=== PATIENT | male | born 1955 | race Caucasian/White ===

== ENCOUNTER 2016-10-17 20:59 | Inpatient (IN) ==
[2016-10-17 21:53] LABS: MANUAL DIFF NEEDED? NO
[2016-10-17 22:07] LABS: BASO% 0.1 % (0.0-0.8); EOS# 0.05 X1000 (0.0-0.7); EOS% 0.3 % (0.0-10.0); HEMATOCRIT 38.4 % (42.0-52.0); HEMOGLOBIN 12.9 g/dL (14.0-18.0); IMM GRAN# 0.03 X1000 (0.0-0.04); IMM GRAN% 0.2 % (0.0-0.5); LYMPH# 1.36 X1000 (1.2-3.4); LYMPH% 9.5 % (20.5-51.1); MCH 27.8 PG (27-31); MCHC 33.6 g/dL (33-37); MCV 82.8 FL (81-99); MONO# 1.09 X1000 (0.11-0.59); MONO% 7.6 % (1.7-9.3); MPV 8.7 FL (7.4-10.4); NEUT% 82.3 % (42.2-75.2); PLT 307 X1000 (130-400); RBC 4.64 XMIL (4.7-6.1)
[2016-10-17 22:16] LABS: AGAP 14; ALKALINE PHOSPHATASE 103 U/L (32-122); BUN 30 mg/dL (8-22); CALCIUM 9.9 mg/dL (8.8-10.2); CHLORIDE 95 mmol/L (98-107); COSMO 277; GOT 39 U/L (10-34); GPT 88 U/L (10-44); POTASSIUM 4.3 mmol/L (3.5-5.1); SODIUM 134 mmol/L (136-145); TCO2 25 mmol/L (25-35); TOTAL PROTEIN 8.9 g/dL (6.3-8.3)
--- NOTE | 2016-10-17 23:16 | Diag Imaging Result Doc PS360 ---
EXAM: FOOT COMPLETE RIGHT HISTORY: INFECTION///WOUND TECHNIQUE: Three views COMPARISON: None. FINDINGS: There are prominent long-standing arthritic changes to the foot with bone spurring and joint space narrowing. There are erosions along the medial surface of the distal first metatarsal and proximal phalanx of the great toe. More chronic appearing erosions to the fourth metatarsal phalangeal joint. IMPRESSION: Findings suspicious for osteomyelitis at the first metatarsal phalangeal joint. Electronically signed by Ren Holguin 10/17/2016 11:13 PM
[2016-10-17] MEDS ORDERED: NS 1,000 ML IV ONE (23:31)
[2016-10-17] MEDS ORDERED: VANCOMYCIN 1 GM/NS 1 GM/250 ML IVPB IV ONE (23:33)
[2016-10-17] MEDS ORDERED: AMARYL PO ONE (23:35)
--- NOTE | 2016-10-17 23:38 | PROVIDER DOCUMENTATION ---
This chart was entered by Priya Mcclendon Scribe, acting as scribe for Ham Giraldo MD. HPI-Rash/Wound/ReCheck - General Chief Complaint: Extremity Pain Stated Complaint: "WOUND ON SOLE OF FOOT" Time Seen by Provider: 10/17/16 21:47 Source: patient Allergies/Adverse Reactions: Allergies Allergy/AdvReac Type Severity Reaction Status Date / Time No Known Allergies Allergy Verified 04/27/16 12:28 Home Medications: Home Medication List Medication Instructions Recorded Confirmed Last Taken Type Metformin [Glucophage] 500 mg PO DAILY 04/25/16 10/17/16 10/16/16 19:00 History 500 MG Allopurinol [Allopurinol] 1 tab PO DAILY 10/17/16 10/17/16 10/17/16 06:00 History 1 TAB Glimepiride [Glimepiride] 1 tab PO DAILY 10/17/16 10/17/16 10/16/16 19:00 History 1 TAB Lisinopril [Lisinopril] 5 mg PO DAILY 10/17/16 10/17/16 10/17/16 06:00 History 5 MG Sertraline [Zoloft] 50 mg PO DAILY 10/17/16 10/17/16 10/16/16 19:00 History 50 MG - History of Present Illness-Dermatology Nature of Presenting Problem: 61 year old M presents to the ED with a cc of a ulcer to bottom of right foot. Pt states that he is being followed by Dr. Banerjee for wound care. Pt states that was told to come to the ED with any changes. Pt states that today he noticed a purplish color to the top of right foot. Location: reports: feet Severity: reports: moderate Onset/Duration: reports: other ("months") Timing: reports: still present Context/Associated Symptoms: reports: other (ulcer) Locality of Occurance: Home Similar Symptoms Previously?: Yes Recently seen or treated by another doctor?: Yes Review of Systems - Adult - REVIEW OF SYSTEMS - ADULT Constitutional: denies: chills, fever Eyes: reports: no symptoms reported Ears, Nose, Mouth & Throat: reports: no symptoms reported Cardiovascular: reports: no symptoms reported Respiratory: reports: no symptoms reported Gastrointestinal: reports: no symptoms reported Genitourinary: reports: no symptoms reported Musculoskeletal: denies: muscle aches, muscle weakness Integumentary: reports: skin sores/ulcer. denies: skin thickening Neurological: reports: no symptoms reported Psychiatric: reports: no symptoms reported Endocrine: reports: no symptoms reported Hematologic/Lymphatic: reports: no symptoms reported Allergic/Immunologic: reports: no symptoms reported All Other Systems: Reviewed and Negative Past History - Adult - PAST MEDICAL HISTORY-ADULT Review of Records: reports: Nursing Assessment Review, Medications Reviewed Major Childhood Illnesses: reports: denies history Endocrine/Immune: reports: Diabetes - PRIOR SURGERIES/PROCEDURES Surgical/Procedure History: reports: orthopedic (extremity) - IMMUNIZATION STATUS Childhood Immunizations: See Nurse Assessment Flu Vaccine: See Nurse Assessment - SOCIAL HISTORY Smoking: non-smoker Substance Use: none/never Alcohol Use Frequency: never Physical Exam-General - PHYSICAL EXAM-ADULT Initial Vital Signs Reviewed: Yes - CONSTITUTIONAL General Appearance: appears well, alert, no apparent distress - RESPIRATORY Respiratory: no respiratory distress - CARDIOVASCULAR Cardiovascular: regular rate, rhythm - SKIN Integumentary: other (1.5 cm diabetic ulcer to bottom of right foot at base of 4th metatarsal) - PSYCHIATRIC Psych/Mental Status: normal mood/affect, normal thought content, normal thought process, oriented x 3 Progress - PLAN OF CARE/RESULTS Progress/Plan/Lab Results: Vital Signs - 8 hr 10/17/16 21:17 Temperature 98.4 F Pulse Rate 107 H Respiratory Rate 16 Blood Pressure 131/83 O2 Sat by Pulse Oximetry 98 Laboratory Results - last 24 hr 10/17/16 10/17/16 21:30 21:30 WBC 14.36 H RBC 4.64 L Hgb 12.9 L Hct 38.4 L MCV 82.8 MCH 27.8 MCHC 33.6 RDW Std Deviation 13.1 Plt Count 307 MPV 8.7 Immature Gran % (Auto) 0.2 Neut % (Auto) 82.3 H Lymph % (Auto) 9.5 L Carver % (Auto) 7.6 Eos % (Auto) 0.3 Baso % (Auto) 0.1 Immature Gran # (Auto) 0.03 Neut # (Auto) 11.82 H Lymph # (Auto) 1.36 Carver # (Auto) 1.09 H Eos # (Auto) 0.05 Baso # (Auto) 0.01 Sodium 134 L Potassium 4.3 Chloride 95 L Carbon Dioxide 25 Anion Gap 14 BUN 30 H Creatinine 1.1 Estimated GFR/1.73 m2 > 60 BUN/Creatinine Ratio 27 Glucose 148 H Calculated Osmolality 277 Calcium 9.9 Total Bilirubin 0.80 AST 39 H ALT 88 H Alkaline Phosphatase 103 Total Protein 8.9 H Albumin 4.0 Globulin 5.0 Albumin/Globulin Ratio 1.0 Orders Category Date Time Status Admit - [facility] Routine AdmDCTranf 10/17/16 23:31 Ordered Activity - Bed Rest with BRP ORDERED Care 10/17/16 23:31 Active IV Insertion ORDERED Care 10/17/16 21:46 Completed Vital Signs Order Q 8-HR .ASSESS Care 10/17/16 23:31 Active Diabetic Diet Diet 10/17/16 23:32 Active FOOT COMPLETE RIGHT [RAD] Stat Exams 10/17/16 21:47 Completed CBC WITH ELECTRONIC DIFF [HEME] Stat Lab 10/17/16 21:30 Completed COMPREHENSIVE METABOLIC PANEL [CHEM] Stat Lab 10/17/16 21:30 Completed WOUND CULTURE INC GRAM STAIN [RM] Routine Lab 10/17/16 21:52 Received 0.9% Sodium Chloride Inj [Ns] 1,000 ml Med 10/17/16 23:31 Discontinued IV KVO Glimepiride [Amaryl] Med 10/17/16 23:35 Once 4 mg PO NOW ONE Piperacil/Tazobact 3.375 gm/Ns [Zosyn 3.375 gm/Ns] 50 Med 10/17/16 23:45 Ordered ml IV Q6H Vancomycin 1 gm/Ns Med 10/17/16 23:33 Active 1 gm in 250 ml IV NOW Result Diagrams: 10/17/16 21:30 10/17/16 21:30 Departure - Departure Date of Disposition Decision: 10/17/16 Time of Disposition Decision: 23:37 DIAGNOSIS: Diabetic foot ulcer with osteomyelitis Disposition: ADMITTED INPATIENT 09 Certified Medical Emergency: Emergent Condition: Stable Referrals and Follow-Ups: Marylu Aviles MD [Primary Care Provider] - - Critical Care Note This patient required my direct & personal management of CC.: No This chart was documented by the indicated scribe, (Priya Mcclendon Scribe) and accurately reflects the services I performed and decisions made by me, Ham Giraldo MD, as attested by the provider's signature.
[2016-10-18] MEDS: ZOSYN 3.375 GM/NS 3.375 GM/50 ML IVPB IV SCH ×4 (01:04→17:04)
[2016-10-18] MEDS ORDERED: AMARYL PO SCH (09:15)
[2016-10-18] MEDS ORDERED: GLUCOPHAGE PO SCH (09:15)
[2016-10-18] MEDS ORDERED: VANCOMYCIN IV PER PHARMACY MISC SCH (09:15)
[2016-10-18] MEDS ORDERED: ZYLOPRIM PO SCH (09:15)
[2016-10-18] MEDS ORDERED: ZOLOFT PO SCH (09:15)
[2016-10-18] MEDS ORDERED: PRINIVIL PO SCH (09:15)
[2016-10-18] MEDS ORDERED: VANCOMYCIN 1,400 MG in NS 250 ML IV ONE (11:00)
--- NOTE | 2016-10-18 11:30 | HISTORY AND PHYSICAL ---
PRIMARY CARE PHYSICIAN: Dr. Aviles. SURGEON: Dr. Banerjee. CHIEF COMPLAINT: Ulcer on the bottom of his right foot that has turned purplish color to the top of the right foot now. HISTORY OF PRESENTING ILLNESS: This is a 61-year-old, male who presents to [facility] ER, stating that he is followed by Dr. Banerjee and being treated for a diabetic foot ulcer on the bottom part of his right foot. He was told that if any discoloration, pain, or drainage occurred to the right foot, to come to the emergency room. He noted some purple discoloration to the 4th toe of his right foot so he came to the emergency room. He was noted upon arrival to have a white blood cell count of 14.36. A right foot x-ray showed findings suspicious for osteomyelitis at the 1st metatarsophalangeal joint so he is being admitted for further evaluation and treatment. PAST MEDICAL HISTORY: Diabetes, coronary artery disease, hypertension, gout, and chronic kidney disease. PAST SURGICAL HISTORY: Right rotator cuff surgery and left toe amputation secondary to a diabetic ulcer with osteomyelitis back in April of this year. FAMILY HISTORY: Noncontributory. SOCIAL HISTORY: Currently lives with family. Denies any tobacco, alcohol, or illicit drug use. ALLERGIES: He has no known drug allergies. HOME MEDICATIONS: He takes allopurinol 100 mg p.o. daily, glimepiride 4 mg p.o. daily, lisinopril 5 mg p.o. daily, Glucophage 500 mg p.o. daily, and Zoloft 50 mg p.o. daily. LABORATORY DATA: Showed a white blood cell count of 14.36, a hemoglobin of 12.9, hematocrit 38.4, platelets 307,000. Sodium 134, potassium 4.3, chloride 95, CO2 25, BUN of 30, creatinine 1.1, glucose 148. AST of 39, ALT 88. X-ray of the right foot showed findings suspicious for osteomyelitis at the 1st metatarsophalangeal joint of the great toe and more chronic appearing erosions to the 4th metatarsophalangeal joint. REVIEW OF SYSTEMS: He denied any fever, chills, blurred vision, dizziness, chest pain, coughing, shortness of breath. Denied any constipation, diarrhea, burning or hurting with urination. He was positive for some purplish discoloration to his 4th right toe. PHYSICAL EXAMINATION: VITAL SIGNS: Temperature 98.4 degrees, pulse 107, respirations 16, blood pressure 131/83, saturating 98% on room air. GENERAL: This is a 61-year-old, male who is lying in the bed and answers questions appropriately. HEENT: Normocephalic and atraumatic. Pupils are equal, round, and reactive to light. The extraocular movements are intact. Oropharynx and nares are clear. NECK: Supple. LUNGS: Clear to auscultation bilaterally with equal lung expansion and chest wall movement. HEART: With regular rate and rhythm. No murmurs, rubs, or gallops. ABDOMEN: Soft, nontender, nondistended. Bowel sounds are present x4 quadrants. EXTREMITIES: No clubbing, cyanosis, or edema. Patient is noted to have a 1.5 cm diabetic ulcer to the bottom of his right foot at the base of the 4th metatarsal with a pinpoint open area and red-purplish discoloration that extends up into the 4th toe on the top. NEUROLOGICAL: The cranial nerves 2-12 are grossly intact. ASSESSMENT: 1. Right diabetic foot ulcer. 2. Osteomyelitis of the right foot, specifically in the 1st metatarsophalangeal joint. 3. Diabetes type 2. 4. Hypertension. PLAN: He was admitted to the medical unit at [place]. Placed on a diabetic diet. We will consult surgery, Dr. Banerjee. Surgeon has been following him in the wound clinic. We will consult the wound care nurse also. Place on vancomycin per pharmacy protocol, Zosyn 3.375 g IV q.6. Continue his home medications. Pattern blood sugars with sliding scale insulin. Recheck a CBC, BMP in the a.m. Dictated by ZACHARIAH Justin for Kristian Gilmore MD cc: ZACHARIAH Justin MD Bhavna Gowda, MD
--- NOTE | 2016-10-18 13:35 | PROGRESS NOTE ---
DATE: 10/18/2016 SUBJECTIVE: Today Mr. Gamino refers to be doing fine. He has been seeing Dr. Banerjee for treatment of a wound under his right leg. However, he was told that if the 4th toe shows any signs of blue, he should go to the emergency room, and that is what he has done. OBJECTIVE: Vital Signs: Blood pressure is 121/60, pulse is 83, respirations 18, temperature 98 degrees. General: Mr. Gamino is a 61-year-old male. He is in bed. He does not seem to be in any distress. HEENT: Mucosa is pink and moist. Anicteric. Acyanotic. Neck: Supple. Chest: Good air entry bilaterally. No crepitations. No rhonchi. Cardiovascular: Regular rate and rhythm. Abdomen: Soft. Extremities: There is no pedal edema, but there is sparsity of hair distribution in the lower extremity. Distal pulses are present bilaterally, but kind of low in intensity. The left foot has the 2nd and the 4th toes amputated. The right leg has some discoloration above the 3rd and the 4th toes. The 4th looks bluish, and there is some purplish discoloration in the medial aspect of the 4th toe, which is with some foul smell discharge. LABORATORY DATA: None for today. An x-ray of the right foot shows findings suspicious for osteomyelitis at the 1st metatarsophalangeal joint. ASSESSMENT: 1. Right diabetic foot ulcer. 2. Osteomyelitis of the right big toe. 3. The 4th toe on the right side with bluish discoloration suspicious for gangrene toe. 4. Diabetes mellitus. 5. Hypertension. PLAN: We are going to continue with the current IV antibiotics, including vancomycin and Zosyn, until the patient gets to see the surgeon. We will use sliding scale for blood glucose control. We are going to withhold the oral hypoglycemic agents while the patient is in the hospital since there is a risk that we might do other investigations that might need contrast. In that case, we will not be able to use metformin, so we are just going hold back on those. cc: Kristian Gilmore MD
--- NOTE | 2016-10-18 14:04 | CONSULTATION ---
DATE OF CONSULTATION: 10/18/2016 REQUESTING PHYSICIAN: Dr. Gilmore. Consult concerning diabetic foot ulcer. HISTORY OF PRESENT ILLNESS: A 61-year-old male who is a patient of my partner, Dr. Banerjee. He has been treated for diabetic foot ulcer on the bottom of his right foot. He had been seen by Dr. Banerjee in the Wound Care Clinic last week. Apparently the wound has been healing up somewhat but he came to the emergency department yesterday with discoloration, pain and drainage coming from the right foot. He also noted that the toe itself became purple. Foot x-ray done in the emergency department did show suspicion for osteomyelitis of the 1st metatarsal phalangeal joint. He was admitted and started on antibiotics. I was asked to evaluate the patient. He does have a white blood cell count of 14.3. The patient reports no significant pain. Says it is worse since he saw Dr. Banerjee last week. PAST MEDICAL HISTORY: Diabetes, coronary artery disease, hypertension, gout, chronic kidney disease. PAST SURGICAL HISTORY: Includes previous amputation on his left foot, rotator cuff surgery on the right. FAMILY HISTORY: Reviewed with patient, noncontributory. SOCIAL HISTORY: Denies alcohol, tobacco or illicit drugs. ALLERGIES: None. HOME MEDICATIONS: Reviewed. Current MAR reviewed. Of note, he is on vancomycin and Zosyn. REVIEW OF SYSTEMS: A full 10 point review of systems obtained, negative as specified in HPI. PHYSICAL EXAMINATION: Vital Signs: Patient is currently afebrile. Temperature 98.8 degrees. He did have a temperature max of 100.6 degrees. His pulse is 86, respiratory rate 18, blood pressure 121/60. General: No acute distress. Alert, interactive, male looks stated age. HEENT: Normocephalic, atraumatic. Pupils equal, round, reactive to light. Mucous membranes moist. Oropharynx benign. Neck: Supple. Trachea midline. Cardiovascular: Regular rate and rhythm. Lungs: Grossly clear. Abdomen: Soft, nontender, nondistended. Extremities: Previous amputation noted to the left foot that is healing well. On the right foot he does have a diabetic foot ulcer on the plantar aspect at the base of the 4th metatarsal. There is a discoloration on his 4th toe. There is some erythema on dorsal aspect. Neurologic: Grossly intact. Skin: As noted above. Vascular: All extremities perfused. LABORATORY: White blood cell count yesterday was 14, hematocrit 38. X-ray reviewed and radiology report reviewed. There is some chronic appearing changes to the 4th metatarsophalangeal joint. It is possible osteomyelitis of the 1st metatarsal joint. ASSESSMENT AND PLAN: A 61-year-old male with a diabetic foot ulcer. 1. Diabetic foot ulcer. At this time agree with antibiotics. We will ask Dr. Banerjee to see him tomorrow. He has been followed in the Wound Care pretty closely. This may ultimately require an amputation. I suspect he has got some degree of peripheral vascular disease in that foot and has maybe caused embolic disease to his 4th toe. Regardless the toe itself has discoloration and suspect it will again need amputation but we will allow Dr. Banerjee a chance to see since he has seen him and see his progress in the last several months. 2. Multiple medical comorbidities currently being managed by hospitalist service. I appreciate the consult. cc: Frank Noguera MD
[2016-10-18] MEDS ORDERED: D50W SYRINGE ONE (16:27)
[2016-10-18] MEDS: HUMALOG (PARKWAY) SUBQ SCH ×2 (16:29→20:39)
[2016-10-18] MEDS: PRINIVIL PO SCH (20:23)
[2016-10-18] MEDS: ZYLOPRIM PO SCH (20:24)
[2016-10-18] MEDS: ZOLOFT PO SCH (20:24)
[2016-10-18] MEDS: VANCOMYCIN 1 GM/NS 1 GM/250 ML IVPB IV SCH (22:05)
[2016-10-19] MEDS: ZOSYN 3.375 GM/NS 3.375 GM/50 ML IVPB IV SCH ×4 (02:12→22:29)
[2016-10-19 06:05] LABS: MANUAL DIFF NEEDED? NO
[2016-10-19] MEDS ORDERED: D50W SYRINGE ONE (06:30)
[2016-10-19] MEDS: HUMALOG (PARKWAY) SUBQ SCH (06:33)
[2016-10-19 06:35] LABS: BASO% 0.1 % (0.0-0.8); EOS# 0.05 X1000 (0.0-0.7); EOS% 0.4 % (0.0-10.0); HEMATOCRIT 32.6 % (42.0-52.0); HEMOGLOBIN 10.8 g/dL (14.0-18.0); IMM GRAN# 0.04 X1000 (0.0-0.04); IMM GRAN% 0.3 % (0.0-0.5); LYMPH% 7.1 % (20.5-51.1); MCH 27.4 PG (27-31); MCHC 33.1 g/dL (33-37); MCV 82.7 FL (81-99); MONO# 1.28 X1000 (0.11-0.59); MPV 8.6 FL (7.4-10.4); NEUT% 83.1 % (42.2-75.2); PLT 250 X1000 (130-400); RBC 3.94 XMIL (4.7-6.1)
[2016-10-19 06:49] LABS: AGAP 9; BUN 29 mg/dL (8-22); CALCIUM 9.1 mg/dL (8.8-10.2); CHLORIDE 103 mmol/L (98-107); COSMO 277; POTASSIUM 4.5 mmol/L (3.5-5.1); SODIUM 137 mmol/L (136-145); TCO2 25 mmol/L (25-35)
[2016-10-19] MEDS: VANCOMYCIN 1 GM/NS 1 GM/250 ML IVPB IV SCH (11:05)
[2016-10-19] MEDS: HUMALOG DOSE (PARKWAY) SUBQ SCH ×3 (11:05→22:29)
--- NOTE | 2016-10-19 13:42 | PROGRESS NOTE ---
DATE: 10/19/2016 SUBJECTIVE: Today, Mr. Gamino refers to be doing fine. Does not actually have any complaints. He is awaiting Dr. Banerjee to review him. OBJECTIVE: Vital signs: Blood pressure is 146/68, pulse is 70, respirations 18, temperature 97.4 degrees. General: Mr. Gamino is a 61-year-old male. He is in bed, not seemingly distressed. HEENT: Mucosa is pink and moist. Anicteric. Acyanotic. Neck: Supple. Chest: Clear. Cardiovascular: Regular rate and rhythm. Abdomen: Soft. Extremities: No pedal edema. There is a sparsity of hair distribution on the lower extremities. Distal pulses are bilaterally reduced. The left foot has the 2nd and the 4th toe amputated. The right leg has some erythematous changes above the 3rd and the 4th toes. The 4th toe continues to look more bluish in discoloration and smells funny. LABORATORY DATA: WBC is 14.16, hemoglobin is 10.8, platelet count of 250,000. Chemistry was reviewed and completely normal. Glucose was 43, a little low. ASSESSMENT: 1. Right diabetic foot ulcer. 2. Osteomyelitis of the right big toe on imaging; however, clinically does not have any problem. 3. Fourth right toe with bluish discoloration suspicious for gangrene toe (embolic phenomenon). 4. Diabetes mellitus. The patient actually went hypoglycemic yesterday, so we had to discontinue all her oral antidiabetic medications. 5. Hypertension. Controlled. So, today we will going to continue with the current IV antibiotics, including vancomycin and Zosyn. We are pending Surgery to evaluate the patient on the toe. I think he eventually will be needing amputation of the affected toe. cc: Kristian Gilmore MD
[2016-10-19] MEDS: PRINIVIL PO SCH (22:29)
[2016-10-19] MEDS: ZOLOFT PO SCH (22:29)
[2016-10-19] MEDS: ZYLOPRIM PO SCH (22:29)
[2016-10-20] MEDS: VANCOMYCIN 1 GM/NS 1 GM/250 ML IVPB IV SCH (00:56)
[2016-10-20] MEDS: ZOSYN 3.375 GM/NS 3.375 GM/50 ML IVPB IV SCH ×3 (05:43→16:59)
[2016-10-20 06:30] LABS: MANUAL DIFF NEEDED? NO
[2016-10-20 06:38] LABS: BASO% 0.1 % (0.0-0.8); EOS# 0.35 X1000 (0.0-0.7); EOS% 3.2 % (0.0-10.0); HEMATOCRIT 31.5 % (42.0-52.0); HEMOGLOBIN 10.2 g/dL (14.0-18.0); IMM GRAN# 0.01 X1000 (0.0-0.04); IMM GRAN% 0.1 % (0.0-0.5); LYMPH# 0.96 X1000 (1.2-3.4); LYMPH% 8.7 % (20.5-51.1); MCH 26.8 PG (27-31); MCHC 32.4 g/dL (33-37); MCV 82.7 FL (81-99); MONO% 9.1 % (1.7-9.3); MPV 8.6 FL (7.4-10.4); NEUT% 78.8 % (42.2-75.2); PLT 225 X1000 (130-400); RBC 3.81 XMIL (4.7-6.1)
[2016-10-20] MEDS: HUMALOG DOSE (PARKWAY) SUBQ SCH ×2 (06:44→14:03)
[2016-10-20 06:59] LABS: AGAP 10; BUN 24 mg/dL (8-22); CALCIUM 9.1 mg/dL (8.8-10.2); CHLORIDE 104 mmol/L (98-107); COSMO 277; SODIUM 136 mmol/L (136-145); TCO2 22 mmol/L (25-35)
--- NOTE | 2016-10-20 08:41 | EKG Report ---
Test Performed on : 10/20/2016 07:18:09 AM Test Reason : per anesthesia request Blood Pressure : / mmHG Vent. Rate : 079 BPM Atrial Rate : 079 BPM P-R Int : 136 ms QRS Dur : 088 ms QT Int : 376 ms P-R-T Axes : 036 031 020 degrees QTc Int : 431 ms Normal sinus rhythm. Normal ECG When compared with ECG of 12-JUL-2010 12:56, Nonspecific T wave abnormality no longer evident in Lateral leads Unconfirmed Result
--- NOTE | 2016-10-20 09:25 | PROGRESS NOTE ---
DATE: 10/19/2016 SUBJECTIVE: He feels well. Some pain in his toe but he overall feels okay. OBJECTIVE: Vital Signs: Over his hospital course on the , he had a low-grade temperature of a 100.6 degrees but he has been afebrile since. No acute tachycardia. Blood pressures have been in the 140s systolic. He is on room air saturating 100%. General: He is alert, in no acute distress. Extremities: His bilateral feet are warm. He has got a well-healed amputation site on his left foot with some toe deformities here. No wounds on the right. Plantar aspect overlying the 4th metatarsal head over the 4th and 5th, there is a chronic appearing wound at the base of the callus. It is overall stable. He had some erythema on top of his foot and the 4th toe is purple and ischemic. There is no purulence here. He has got palpable pedal pulses. Labs: Yesterday, white count 14, hematocrit 32, platelets are 250,000. Creatinine is 1. Glucose has been fluctuating, mostly in the 100s. Occasionally dips low to the 40s and 50s. He had a foot x-ray that showed some findings suspicious at the 1st metatarsophalangeal joint but nothing at the site of the wounds or the toe in question. ASSESSMENT/PLAN: Long discussion with this patient who is well known to me. Follow him at the wound center. I suspect that the chronic wound on the bottom of foot has caused distal ischemia of the 4th toe. I recommended amputation, debridement of his foot to facilitate wound healing and to help with his discomfort here. His wounds on the left healed very quickly, surprisingly. He is quite compliant. Patient has got a good support system. Long discussion with the patient. I have recommended amputation of 4th toe with debridement of his foot. We will plan to do this tomorrow. In the meantime, he is on antibiotics. We will make him NPO at midnight and take him to the operating room tomorrow for this. He understands the anticipated prolonged wound healing as he has dealt with this on his left foot over the last couple of months but this will be the first step in getting him over this insult. cc: Bhavik Banerjee MD
--- NOTE | 2016-10-20 12:42 | OPERATIVE NOTE ---
PROCEDURE DATE: 10/20/2016 PREOPERATIVE DIAGNOSIS: Diabetic foot infection of the right with ischemia of the 4th toe. POSTOPERATIVE DIAGNOSIS: Diabetic foot infection of the right with ischemia of the 4th toe. PROCEDURE PERFORMED: Right 4th toe transmetatarsal amputation. ANESTHESIA: General. INDICATION: This is a 61-year-old male with poor diabetic control. He has had a previous history of amputation of the left foot by myself that has healed. He presented back with a worsening wound on the plantar aspect of his foot and a purple painful toe consistent with a diabetic foot infection. He had been treated with antibiotics with no improvement. Amputation is indicated. OPERATIVE FINDINGS: There was a densely necrotic right 4th toe with purulence extending down the metatarsal head and dorsally on the foot of the surrounding tissue. This approximated the periosteum of the third metatarsal medially but did not involve this. Surrounding tissue was bleeding well, otherwise, healthy. PROCEDURE IN DETAIL: Operative risks, benefits, and alternatives discussed with the patient, and he consented to the procedure. Seen preoperatively, surgery to be performed was confirmed. He was taken to the operating room and placed on supine position. General anesthesia was induced without complication. All bony prominences were padded. The right foot was prepped with Betadine solution and draped in the usual fashion. A time-out was performed. We confirmed the surgical site that was marked. We identified the toe in question and then made an elliptical incision around this. At the area of demarcated skin, there is a plantar wound here overlying the metatarsal head. We included this in the excision. Took this down to the metatarsal joint and excised this. The distal metatarsal head was obviously involved. As such, using bone cutters, we excised this at the distal metatarsal shaft. We irrigated the wound. Debrided the bone back with rongeur forceps and noted healthy bleeding tissue surrounding. There was some undermining dorsally but there was no necrotic tissue here, and this was felt best left open to drain. Then applied moist gauze dressing, Kerlix wrap, and a loose SHANI. He tolerated the procedure well with no identified complications. Counts correct x2. I spoke with the family. cc: Bhavik Banerjee MD MTDFab
[2016-10-20] MEDS ORDERED: NORCO-7.5 PO PRN (14:29)
[2016-10-20] MEDS ORDERED: ZOFRAN IV PRN (15:55)
[2016-10-20] MEDS ORDERED: TYLENOL PO PRN (15:55)
[2016-10-20] MEDS: HUMALOG SUBQ SCH ×2 (16:31→21:51)
[2016-10-20] MEDS: PERIDEX MT SCH (21:50)
[2016-10-20] MEDS: ZYLOPRIM PO SCH (21:50)
[2016-10-20] MEDS: ZOLOFT PO SCH (21:50)
[2016-10-20] MEDS: PRINIVIL PO SCH (21:50)
[2016-10-21] MEDS: ZOSYN 3.375 GM/NS 3.375 GM/50 ML IVPB IV SCH ×5 (00:14→23:08)
[2016-10-21 05:50] LABS: HEMATOCRIT 30.6 % (42.0-52.0); HEMOGLOBIN 9.9 g/dL (14.0-18.0); MCH 28.1 PG (27-31); MCHC 32.4 g/dL (33-37); MCV 86.9 FL (81-99); MPV 8.6 FL (7.4-10.4); RBC 3.52 XMIL (4.7-6.1)
[2016-10-21 05:58] LABS: HEMOGLOBIN A1C 6.5 % (4.8-6.0)
[2016-10-21 06:14] LABS: AGAP 11; BUN 19 mg/dL (8-22); CHLORIDE 100 mmol/L (98-107); COSMO 281; POTASSIUM 4.3 mmol/L (3.5-5.1); SODIUM 138 mmol/L (136-145); TCO2 27 mmol/L (25-35)
[2016-10-21] MEDS: HUMALOG SUBQ SCH ×4 (06:21→20:01)
[2016-10-21] MEDS: LOVENOX SUBQ SCH (06:32)
[2016-10-21] MEDS: PERIDEX MT SCH ×2 (08:37→20:04)
--- NOTE | 2016-10-21 14:46 | PROGRESS NOTE ---
DATE: 10/21/2016 SUBJECTIVE: Patient has no focal complaints. OBJECTIVE: Blood pressure 114/66, heart rate of 82, respiratory rate 16, temperature 98.7 degrees, 99% on room air.Cardiovascular: Regular rate and rhythm. Pulmonary: Bilateral breath sounds. Clear to auscultation. GI: Soft, nontender, nondistended. Bowel sounds are positive. LABORATORIES: White count 9.9, hemoglobin and hematocrit 9.9 and 30.6. CMP looked okay. His glucoses were 200 to 264, A1c is 6.5. PROBLEM LIST: 1. Osteo of the 4th toe status post amputation postop day 1. He seems to be recuperating well. He is currently on antibiotics. Plan is to continue IV antibiotics and then discharged home on likely oral antibiotics. 2. Diabetic foot ulcer. Will continue wound care as described. 3. Diabetes. He is actually pretty well controlled on his current regimen. His A1c is 6.5, previously 5.5 so I think he is doing well. 4. Disposition. Pending clinical course. Hopefully home in the next 1-2 days per surgical recommendations. cc: Robert Ang MD
--- NOTE | 2016-10-21 15:46 | PROGRESS NOTE ---
DATE: 10/21/2016 SUBJECTIVE: He feels well. No pain in his foot. No events overnight. OBJECTIVE: No fevers. No tachycardia. Blood pressure 114/66, oxygen saturation 99% on room air. General: He is alert. His dressing is clean, dry, and intact. His remaining toes are viable. White count is 9, hematocrit 30, creatinine is 1.2, glucose 153. ASSESSMENT AND PLAN: A 61-year-old male with diabetic foot infection status post right 4th toe amputation in transmetatarsal fashion. He is doing well. He is on IV antibiotics. His dressing is clean and we can remove this tomorrow. Dr. Odom is going to see my patients but I think he will be ready to discharge home soon. He can see me back in the next 1-2 weeks at [facility] to follow his wound. In the meantime, we will continue Santyl, lavage dressings , and they are familiar with this wound as they have dealt with a similar on the left foot. His daughter is here. He has a good support system. He has got an off-loading boot. I have encouraged him to wear this at all times. and to wear this at all times. cc: Bhavik Banerjee MD [employer]
[2016-10-21] MEDS: ZOLOFT PO SCH (20:04)
[2016-10-21] MEDS: ZYLOPRIM PO SCH (20:05)
[2016-10-21] MEDS: PRINIVIL PO SCH (20:05)
[2016-10-22] MEDS: ZOSYN 3.375 GM/NS 3.375 GM/50 ML IVPB IV SCH (05:00)
[2016-10-22] MEDS: LOVENOX SUBQ SCH (05:00)
[2016-10-22 05:27] LABS: HEMATOCRIT 31.2 % (42.0-52.0); HEMOGLOBIN 10.1 g/dL (14.0-18.0); MCH 27.9 PG (27-31); MCHC 32.4 g/dL (33-37); MCV 86.2 FL (81-99); MPV 8.6 FL (7.4-10.4); RBC 3.62 XMIL (4.7-6.1)
[2016-10-22 05:59] LABS: AGAP 10; BUN 18 mg/dL (8-22); CALCIUM 9.2 mg/dL (8.8-10.2); CHLORIDE 99 mmol/L (98-107); COSMO 276; POTASSIUM 4.6 mmol/L (3.5-5.1); SODIUM 136 mmol/L (136-145); TCO2 27 mmol/L (25-35)
[2016-10-22] MEDS: HUMALOG SUBQ SCH ×2 (06:12→10:27)
[2016-10-22 09:16] VITALS: BP 115/65
[2016-10-22] MEDS: PERIDEX MT SCH (10:27)
--- NOTE | 2016-10-22 16:04 | DISCHARGE SUMMARY ---
ADMISSION DATE: 10/17/2016 DISCHARGE DATE: 10/22/2016 ADMITTING DIAGNOSES: 1. Infected right 4th toe. 2. Poorly-controlled diabetes. DISCHARGE DIAGNOSES: 1. Infected right 4th toe. 2. Poorly-controlled diabetes. PRINCIPAL PROCEDURE: Right 4th toe amputation per Dr. Banerjee 10/20/2016. DISCHARGE DISABILITY: Full. DISCHARGE DISPOSITION: He will return to the wound clinic and be followed by Dr. Banerjee. DISCHARGE MEDICATION: He is to return to his home medications. DISCHARGE DIET: Diabetic diet. HOSPITAL COURSE: Mr. Melvin Gamino presented to the emergency department on 10/17/2016. Was admitted by the hospitalist. Was seen by Dr. Noguera in consultation 10/18/2016. Dr. Banerjee had followed him as an outpatient and therefore did his surgery on 10/20/2016 which was amputation of the right 4th toe. The wound was left open. I evaluated it today, it was clean, and I taught his how to dress the wound. I talked about wound care. He has follow-up appointment in the wound clinic and we will discharge him home today. They know to contact us with any problems. He was given some dressings and saline at discharge so that they can do twice daily dressings. cc: Andree Odom MD
== END 2016-10-22 11:00 | disposition home or self-care (01) ==
LOC: P.ED 20:59 → P.MEDSURG 21:00 → SUATTDRO 21:00 → 4N 10-20 12:00
PROVIDERS: ATTEND Internal Medicine

== ENCOUNTER 2017-01-11 13:25 | Inpatient (IN) ==
--- NOTE | 2017-01-11 14:40 | Diag Imaging Result Doc PS360 ---
EXAM: ANKLE COMPLETE RIGHT HISTORY: Diabetic foot TECHNIQUE: Three views COMPARISON: None. FINDINGS: No fracture. No dislocation. No other bony abnormality. IMPRESSION: Negative exam. Electronically signed by Ren Holguin 01/11/2017 2:37 PM
--- NOTE | 2017-01-11 14:42 | Diag Imaging Result Doc PS360 ---
EXAM: FOOT COMPLETE RIGHT HISTORY: Diabetic foot TECHNIQUE: Right foot three views COMMENT: Compared to the previous study of 10/17/2016 there has been amputation of the distal portions of the second third and fourth metatarsals. There is a small remnant of the proximal phalanx or metatarsal head adjacent to the stump of the second metatarsal. There is soft tissue calcification present around the first metatarsophalangeal joint. Some erosion of the distal first metatarsal is present particularly on the medial aspect. There is also erosion of the base of the proximal phalanx of the great toe which was not present on the previous study. There is increased soft tissue swelling. Given the calcifications in the short soft tissues particularly as seen on the previous radiograph, the possibility of gouty arthropathy in addition to osteomyelitis in the distal second through fourth metatarsals cannot be excluded. IMPRESSION: Probable chronic osteomyelitis in the distal second through fourth metatarsals, although this may be present due to exclusively to postsurgical change. Possibility of septic arthritis and osteomyelitis around the first metatarsal phalangeal joint cannot be excluded. Electronically signed by Vinicio Teran 01/11/2017 2:40 PM
[2017-01-11] MEDS ORDERED: NS 1,000 ML IV SCH (15:00)
[2017-01-11] MEDS: ZOSYN 3.375 GM in NS 50 ML IV SCH (15:25)
[2017-01-11 15:28] LABS: MANUAL DIFF NEEDED? NO
[2017-01-11 15:34] LABS: BASO% 0.1 % (0.0-0.8); EOS# 0.12 X1000 (0.0-0.7); EOS% 1.4 % (0.0-10.0); HEMOGLOBIN 8.3 g/dL (14.0-18.0); LYMPH# 1.31 X1000 (1.2-3.4); MCH 26.1 PG (27-31); MCHC 31.9 g/dL (33-37); MCV 81.8 FL (81-99); MONO# 0.58 X1000 (0.11-0.59); MONO% 6.6 % (1.7-9.3); MPV 8.6 FL (7.4-10.4); NEUT% 76.9 % (42.2-75.2); PLT 402 X1000 (130-400); RBC 3.18 XMIL (4.7-6.1)
[2017-01-11] MEDS ORDERED: VANCOMYCIN IV PER PHARMACY MISC SCH (15:45)
[2017-01-11] MEDS ORDERED: ZOFRAN IV PRN (15:57)
[2017-01-11] MEDS ORDERED: TYLENOL PO PRN (15:57)
[2017-01-11 16:05] LABS: AGAP 11; BUN 31 mg/dL (8-22); CHLORIDE 97 mmol/L (98-107); COSMO 281; POTASSIUM 4.4 mmol/L (3.5-5.1); SODIUM 134 mmol/L (136-145); TCO2 26 mmol/L (25-35)
[2017-01-11 16:12] LABS: ALBUMIN 3.6 g/dL (3.5-5.0); ALKALINE PHOSPHATASE 81 U/L (32-122); DIRECT BILIRUBIN < 0.20 mg/dL (0.00-0.20); GOT 12 U/L (10-34); GPT 14 U/L (10-44); TOTAL BILIRUBIN 0.36 mg/dL (0.20-1.00); TOTAL PROTEIN 7.8 g/dL (6.3-8.3)
[2017-01-11] MEDS ORDERED: VANCOMYCIN 2,200 MG in NS 500 ML IV ONE (17:00)
--- NOTE | 2017-01-11 17:50 | HISTORY AND PHYSICAL ---
PRIMARY CARE PROVIDER: Dr. Aviles PRIMARY SURGEON: Dr. Jose Banerjee CHIEF COMPLAINT: Right foot ulcer, with infection. HISTORY OF PRESENT ILLNESS: Mr. Melvin Gamino is a 61-year-old male , with a significant medical history of diabetes with frequent diabetic ulcers. He has had several amputations of toes. In April of this year, on the left foot he had the third and fourth toes amputated secondary to osteomyelitis. In October of this year, on the right foot, he had fourth toe amputated. In November, he had the third toe amputated, then 3 weeks ago he had the second toe amputated. He now presents with significant infection around the great toe, which could possibly have osteomyelitis. He has been a direct admit through Dr. Jose Banerjee's office for IV therapy, IV antibiotic therapy. He was transferred from his office to here. Apparently , 1 week ago, the right foot started developing redness. He was started on oral antibiotics. It did improve the cellulitis, but continued with infection and now has green purulent drainage. PAST MEDICAL HISTORY: Diabetes mellitus type 2, coronary artery disease with stents x3 in 2010, hypertension, gout. SURGICAL HISTORY: Right rotator cuff surgery. Third and fourth toe on the left foot amputated in April. Right foot, in October, fourth toe amputated. November, third toe amputated. Three weeks ago, second toe amputated. He has had cardiac stents x3 in 2010. FAMILY HISTORY: Father had diabetes. Grandmother had diabetes. SOCIAL HISTORY: Denies tobacco, alcohol, or illicit drug use. He lives at home with his daughter. REVIEW OF SYSTEMS: Fourteen-point review of systems was complete and all were negative, except for those mentioned above HPI. He denies any pain around his toes or feet. He has no complaints. He denies any shortness of breath, fever, chills. ALLERGIES: No known drug allergies. HOME MEDICATIONS: Allopurinol, glimepiride, lisinopril, Glucophage and Zoloft. PHYSICAL EXAMINATION: VITAL SIGNS: Temperature is 98.4 degrees, heart rate 88, respiratory rate 18, blood pressure 142/80, O2 saturation 100% on room air. GENERAL: Mr. Melvin Gamino is a 61-year-old male. He is in no acute distress. He is able to answer all questions appropriately. HEENT: Atraumatic, normocephalic. Pupils equal, round, reactive to light. Extraocular movements intact. Dentition is poor. NECK: Trachea midline. CARDIOVASCULAR: S1, S2. Regular rate and rhythm. No rubs, gallops, murmurs. Negative for JVD or carotid bruits. Trace lower extremity edema. There are +2 dorsalis and radial pulses. PULMONARY: Clear to auscultate. Bilateral breath sounds. No accessory muscle use or work of breathing noted. GASTROINTESTINAL: Soft, nontender, nondistended. Positive bowel sounds x4. EXTREMITIES: Moves all extremities equally. Range of motion intact. NEUROLOGIC: Alert and oriented x4. SKIN: Warm, dry and intact, except for right foot infection. LABORATORY DATA: White blood cells 8000, hemoglobin 8, hematocrit 26, platelet count 402,000. Sodium 134, potassium 4.4, BUN 31, creatinine is 1.1, glucose 214, calcium 9.0. Bilirubin 0.36, AST 12, ALT 14. CRP 54. Total protein 7.8. IMAGING: Ankle x-ray on the right foot: Negative exam. Foot x-ray: Probable chronic osteomyelitis in the distal second through fourth metatarsals. Although this may be present due to, exclusively, post-surgical change, possibility of septic arthritis and osteomyelitis around the first metatarsophalangeal joint cannot be excluded. ASSESSMENT AND PLAN: 1. Right foot diabetic foot ulcer with infection. Rule out osteomyelitis. Has been started on IV antibiotic therapy, per Dr. Jose Banerjee, of [facility]. 2. Diabetes mellitus type 2. We will do pattern blood glucoses and sliding- scale insulin. 3. Hypertension. Continue home medications. 4. Gout. Will continue home medications. 5. History of coronary artery disease. Denies any chest pain. Will continue home medications. Dictated by ZACHARIAH Perez for Madyson Garcia MD cc: ZACHARIAH Perez MD I personally performed a face to face evaluation on this patient. I agree with the assessment and plan as dictated. The patient was directly admitted to the hospital due to an infected right foot ulceration. He has chronic osteomyelitis. Cultures will be obtained and the patient will be started on IV antibiotic therapy. and have been consulted for further assistance. PARRISH
[2017-01-11] MEDS: HUMULIN R SUBQ SCH (18:04)
[2017-01-12] MEDS: ZOSYN 3.375 GM in NS 50 ML IV SCH ×4 (00:27→18:04)
[2017-01-12] MEDS: HUMULIN R SUBQ SCH ×5 (00:27→23:30)
--- NOTE | 2017-01-12 03:45 | CONSULTATION ---
DATE OF CONSULTATION: 01/11/2017 CONCLUSION: The patient as seen by x-ray of the right foot has chronic osteomyelitis of the 2nd through 4th metatarsal bones. RECOMMENDATIONS: I agree with the using the Zosyn but I am going to discontinue vancomycin because the patient has decreased hearing. DISCUSSION: The patient has had problems with infection in both feet. He had toes 2 through 4 amputated from the right foot at various times. In the past week, his foot has become swollen, erythematous and had a purulent drainage. He was seen today by Dr. Banerjee. Cultures from the foot have been sent. The patient's creatinine is 1.1. The GFR is greater than 60. Liver function studies are normal. Blood cultures are pending as are cultures from the right foot. The patient's CBC shows a white count of 8730, hemoglobin 8.3 and platelet count 402,000. PAST MEDICAL HISTORY/REVIEW OF SYSTEMS: Eyes and Ears: Patient has decreased hearing but not vision. Neck: No stiffness. Respiratory: No cough or shortness of breath. GI: No nausea, vomiting, or diarrhea. : No dysuria or flank pain. Bones, Joints, Muscles: See Present Illness. Endocrine: Patient has diabetes but not thyroid disease. Neurologic: No seizures or motor or sensory loss. Integument: No rashes. PREVIOUS HOSPITALIZATIONS AND OPERATIONS: He has had a surgery done on both feet. He has had rotator cuff surgery done. He has had a myocardial infarction and placement of coronary artery stents. MEDICAL DISEASES: Positive for diabetes mellitus, hypertension, myocardial infarction, and gout. INFECTIOUS DISEASE HISTORY: Positive for bilateral foot infection. FAMILY HISTORY: Positive for diabetes mellitus, hypertension, myocardial infarction, and cancer. SOCIAL HISTORY: [place] 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 He has dogs for pets. He is a . He lives with his daughter. PHYSICAL EXAMINATION: Vital Signs: Temperature is 98.4 degrees, pulse 76, respirations 18, blood pressure 142/80. Patient is 5 feet 11 inches tall, weighs 178 pounds. General: This is a fairly healthy-appearing, middle-aged male. He is in no acute distress. Head, Eyes, Ears, Nose, and Throat: He can hear my spoken words and see near objects. No drainage noted from the nose or ears. The patient had no white patches on his tongue. Neck: No meningismus. Thorax: No increased AP diameter of the chest. Lungs: Clear to auscultation. Cardiovascular: Heart rate was regular. There were diminished peripheral pulses in the legs. Abdomen: Soft and nontender. Neurologic: Patient is alert. He can move his extremities. There is no tremor. His sensation was intact to touch. His memory, as regarding his medical history, was good. Extremities: The patient had a dressing on the right foot. There was some serosanguineous drainage on the dressing. The dressing was intact. Thank you for the consultation. cc: Miguel Artis MD
[2017-01-12 07:34] LABS: HEMATOCRIT 27.6 % (42.0-52.0); HEMOGLOBIN 8.7 g/dL (14.0-18.0); MCH 26.6 PG (27-31); MCHC 31.5 g/dL (33-37); MCV 84.4 FL (81-99); MPV 8.5 FL (7.4-10.4); RBC 3.27 XMIL (4.7-6.1)
[2017-01-12 08:13] LABS: CALCIUM 8.8 mg/dL (8.8-10.2); POTASSIUM 4.4 mmol/L (3.5-5.1)
[2017-01-12] MEDS: ZOLOFT PO SCH (08:21)
[2017-01-12] MEDS: AMARYL PO SCH (08:21)
[2017-01-12] MEDS: ZYLOPRIM PO SCH (08:21)
[2017-01-12] MEDS ORDERED: PRINIVIL PO SCH (09:00)
--- NOTE | 2017-01-12 09:38 | PROGRESS NOTE ---
DATE: 01/12/2017 SUBJECTIVE: He is having some pain in his foot. No fevers overnight. PHYSICAL EXAM: T-max 100.1 degrees, pulse 74, blood pressure 111/71, O2 saturation 100% on room air.General: He is alert, in no acute distress. His right foot is well perfused. There is purulent drainage from the 1st metatarsal head of his right toe. The medial wound is clean. Overall the cellulitis seems to be improved and slightly less edematous. There is dark cellulitis extending up the foot. White count is 9, hematocrit 27, creatinine is up to 1.3. Glucose has been in the low 200s. Foot x-ray shows lytic changes of the 1st metatarsal head and the 2nd, 3rd and 4th distal metatarsals but this most likely postsurgical changes. ASSESSMENT AND PLAN: A 61-year-old male with chronic foot wound. The medial wounds from the 2nd, 3rd and 4th toe amputations seem to be healing but now he has developed a more medial wound over his 1st metatarsal head with purulence. I think there is probably some degree of gout here as well as I can see crystals expressed from the wound but there is pus and lytic changes in the metatarsal head here as well. He does not seem to be systemically ill from this but did have a low-grade temperature today. His white count is normal. I had long discussion with the patient and his daughter. I have known them for quite a long time and we have been struggling the foot wounds for quite some time. I think at this point with the goal of leg salvage we should pursue transmetatarsal amputation as I think it will be difficult for him to heal any of these wounds that he has left and currently he just has a #1 and #5 toe and any further debridement of these is not really indicated at this point. I think we have exhausted all options short of transmetatarsal amputation. Discussed this with the patient. He understands and consents. I also did talk to Dr. Artis with Infectious Disease and he agrees that unlikely to be able to treat this with antibiotics and will need a definitive surgical management. We will schedule him for tomorrow. I have made him NPO at midnight tonight. cc: Bhavik Banerjee MD
[2017-01-12] MEDS: NS 1,000 ML IV SCH ×3 (12:26→23:30)
[2017-01-12 15:33] LABS: UR CREAT RANDOM 83.8 mg/dL (14-26); UR PROT RANDOM 30.7 mg/dL
[2017-01-12 15:36] LABS: URINE CULTURE NEEDED? NO; URINE MICRO REVIEW NEEDED? NO; URINE SOURCE CLEAN CATCH
[2017-01-12 15:41] LABS: BILIRUBIN URINE NEGATIVE (NEGATIVE); BLOOD URINE TRACE (NEGATIVE); COLOR YELLOW; GLUCOSE URINE NEGATIVE (NEGATIVE); LEUKOCYTES URINE NEGATIVE (NEGATIVE); NITRITE URINE NEGATIVE (NEGATIVE); PH URINE 5.5; PROTEIN URINE TRACE mg/dL (NEGATIVE); SP GRAVITY URINE 1.018; TURBIDITY URINE CLEAR (CLEAR); UROBILINOGEN URINE NORMAL (NORMAL)
[2017-01-12 15:42] LABS: UR EPITHELIAL CELLS <10 /HPF (<10); URINE BACTERIA NEGATIVE /HPF; URINE RBC <10 /HPF (<10); URINE WBC <10 /HPF (<10)
--- NOTE | 2017-01-12 16:35 | PROGRESS NOTE ---
DATE: 01/12/2017 PRESENT ILLNESS: The patient has chronic osteomyelitis of his right foot. MEDICATIONS: Patient currently is receiving Zosyn as a single agent. PHYSICAL EXAMINATION: Vital Signs: Temperature is 98.8 degrees, pulse 18, respirations 16, blood pressure 108/62. General: This is a fairly healthy-appearing, middle-aged male. He is in no acute distress. Lungs: Clear to auscultation. Cardiovascular: Regular heart rate. Abdomen: Soft and nontender. Extremities: The right foot has a dressing on it. The dressing is intact. LAB AND X-RAY: The CBC shows a white count of 9010, hemoglobin 8.7, and platelet count 335,000. Creatinine is 1.3. GFR is 56. Immunoglobulin levels are normal. Urinalysis showed no white cells or bacteria. Blood cultures are pending. ASSESSMENT AND PLAN: The patient has chronic osteomyelitis of the foot. I am going to continue with his current antibiotics pending further cultures. I totally agree with Dr. Banerjee performing surgery to remove the chronic osteomyelitis. COMORBIDITIES: Include diabetes mellitus, gout. cc: Miguel Artis MD
[2017-01-12] MEDS ORDERED: VANCOMYCIN 2 GM in NS 500 ML IV SCH (17:00)
--- NOTE | 2017-01-12 20:33 | PROGRESS NOTE ---
DATE: 01/12/2017 SUBJECTIVE: The patient is resting comfortably in bed. He states that he feels okay. He is scheduled for an amputation tomorrow. OBJECTIVE: Vital signs: Temperature 98. Blood pressure 108/62. Heart rate 81. Respirations 16. O2 saturation 99% on room air. General: This is an elderly male lying in bed in no acute distress. Heart: S1, S2 normal. Regular rate and rhythm. Lungs: Clear to auscultation bilaterally. No wheezing, no rales, no rhonchi. Abdomen: Positive bowel sounds, soft, nontender, nondistended. Extremities: The right foot is wrapped in a clean dry dressing. LABORATORY DATA: Sodium 137, potassium 4.4, chloride 98, CO2 of 27, BUN 24, creatinine 1.3, glucose 196. White blood cell count 9, hemoglobin 8.7, hematocrit 27, platelets 335. ASSESSMENT AND PLAN: 1. Chronic osteomyelitis of the right foot. The patient is currently on IV antibiotic therapy. The patient is scheduled for a transmetatarsal amputation tomorrow. 2. Acute kidney injury. Will increase the patient's IV fluids and check urine studies. Will avoid nephrotoxic agents. 3. Diabetes mellitus type 2. Continue on Amaryl and sliding scale insulin. Will hold metformin at his time given the increase in the patient's creatinine. 4. Depression. Continue on Zoloft. cc: Madyson Garcia MD
[2017-01-13] MEDS: ZOSYN 3.375 GM in NS 50 ML IV SCH ×4 (00:09→18:13)
[2017-01-13] MEDS: NS 1,000 ML IV SCH ×3 (05:51→23:24)
[2017-01-13 06:27] LABS: MANUAL DIFF NEEDED? NO
[2017-01-13 06:31] LABS: BASO% 0.1 % (0.0-0.8); EOS# 0.34 X1000 (0.0-0.7); EOS% 4.7 % (0.0-10.0); HEMATOCRIT 25.7 % (42.0-52.0); LYMPH# 0.91 X1000 (1.2-3.4); LYMPH% 12.5 % (20.5-51.1); MCH 25.9 PG (27-31); MCHC 31.1 g/dL (33-37); MCV 83.2 FL (81-99); MONO# 0.59 X1000 (0.11-0.59); MONO% 8.1 % (1.7-9.3); MPV 7.9 FL (7.4-10.4); NEUT% 74.6 % (42.2-75.2); PLT 314 X1000 (130-400); RBC 3.09 XMIL (4.7-6.1)
[2017-01-13] MEDS: HUMULIN R SUBQ SCH ×3 (06:44→20:47)
[2017-01-13 06:54] LABS: CALCIUM 8.6 mg/dL (8.8-10.2); POTASSIUM 4.3 mmol/L (3.5-5.1)
--- NOTE | 2017-01-13 12:08 | OPERATIVE NOTE ---
PROCEDURE DATE: 01/13/2017 PREOPERATIVE DIAGNOSIS: Diabetic foot infection with osteomyelitis. POSTOPERATIVE DIAGNOSIS: Diabetic foot infection with osteomyelitis. PROCEDURE PERFORMED: Right transmetatarsal amputation. ESTIMATED BLOOD LOSS: 50 mL. SPECIMEN: Right forefoot. COMPLICATIONS: None. INDICATIONS: This is a 61-year-old, poorly controlled diabetic, who has had toe amputations in the past with prolonged wound healing, presented with new purulent drainage from his foot and evidence of osteomyelitis. Amputation is indicated. OPERATIVE FINDINGS: There is purulence at his medial first metatarsal, but overall the proximal metatarsals were healthy with good perfusion. OPERATIVE NOTE: Risks, benefits, alternatives were discussed. Patient and his daughter understood and consented to the procedure. He was taken to the operating room, placed in supine position. His right foot was prepped with Betadine and draped in the usual fashion. A time-out was performed. A fishmouth type incision was made incorporating his previous wounds and the areas of purulent drainage, and we carried this down to the level of the periosteum after making incision with 15 blade scalpel using electrocautery. We then used a periosteal elevator and undermined the cephalad dorsal and plantar flaps and, using Gigli saw, amputated the forefoot, passed it off. We irrigated the wound. Then using a bone cutter and rongeur forceps, we debrided the bone back. We had to debulk the inferior flap to facilitate closure, but we were able do this. All flaps were well perfused. We irrigated the wound and the bone edges were all smooth. Then using 0 PDS suture in an interrupted vertical mattress fashion, we closed the wound and these served as retention type sutures. We then used a skin stapler to close the skin edges loosely to facilitate closure, but we did allow loosening of wound to facilitate drainage going forward. He tolerated this well. Counts were correct x2. A gauze, Kerlix and Jerson wrap were applied for dressing. He was transferred to recovery in good condition. I spoke with the family. cc: Bhavik Banerjee MD
[2017-01-13] MEDS: MORPHINE ONE ×3 (12:29→17:07)
--- NOTE | 2017-01-13 14:57 | PROGRESS NOTE ---
DATE: 01/13/2017 PRESENT ILLNESS: The patient has chronic osteomyelitis of the right foot. MEDICATIONS: The patient is receiving Zosyn as a single agent. PHYSICAL EXAMINATION: Vital Signs: Temperature is 98 degrees, pulse 73, respirations 18, blood pressure 132/60. Generally, this is a fairly healthy-appearing, middle-aged male. He is in no acute distress. Lungs clear to auscultation. Cardiovascular: Regular heart rate. Abdomen: Soft and nontender. Extremities: The right foot has a large dressing on it and the dressing is intact. LABORATORY DATA AND X-RAY: CBC shows a white count of 7,260. Hemoglobin is 8, platelet count is 314,000. Creatinine is 1.3. GFR is 56. Blood cultures, thus far, are negative. ASSESSMENT AND PLAN: The patient has undergone transmetatarsal amputation of the right foot. The plan is to continue with his current antibiotics. COMORBIDITIES: Diabetes mellitus and gout. cc: Miguel Artis MD
[2017-01-13] MEDS: AMARYL PO SCH (15:22)
[2017-01-13] MEDS: ZOLOFT PO SCH (15:23)
[2017-01-13] MEDS: ZYLOPRIM PO SCH (15:23)
--- NOTE | 2017-01-13 16:43 | PROGRESS NOTE ---
DATE: 01/13/2017 SUBJECTIVE: Today, Mr. Gamino referred to be doing fine. He just came out of his surgery, right transmetatarsal amputation, and he is okay. OBJECTIVE: Blood pressure is 132/66, pulse 73, respirations 18, temperature 97.5. General: Mr. Gamino is a 61-year-old male. He is in bed, does not seem to be in any distress. HEENT: Mucosa is pink and moist. Anicteric and acyanotic. Neck: Supple. Chest: Clear. No crepitations. No rhonchi. Cardiovascular: Regular rate and rhythm. Abdomen: Soft, nontender. Extremities: No pedal edema. The right lower extremity is in a bandage on the distal foot which just had a transmetatarsal amputation. DIABETES PHYSICIAN: The patient is awake, alert and oriented. CURRENT MEDICATIONS: 1. Allopurinol 100 mg daily. 2. Glimepiride 4 mg daily. 3. Insulin sliding scale. 4. Zosyn 3.375 g q.6 hours. 5. Zoloft. ASSESSMENT: 1. Chronic osteomyelitis of the right foot, status post transmetatarsal amputation. The patient has been evaluated by ID. We plan to continue with current antibiotics. 2. Acute kidney injury. We will continue with gentle hydration. 3. Diabetes mellitus. Stable. 4. Situational depression. The patient is on Zoloft and will plan to continue with the same. 5. History of gout. We will continue with allopurinol. cc: Kristian Gilmore MD
[2017-01-13] MEDS: NORCO-7.5 PO PRN (20:47)
[2017-01-14] MEDS: ZOSYN 3.375 GM in NS 50 ML IV SCH ×4 (00:45→17:30)
[2017-01-14] MEDS: NORCO-7.5 PO PRN ×3 (04:22→22:10)
[2017-01-14] MEDS: HUMULIN R SUBQ SCH ×4 (06:39→22:01)
[2017-01-14 06:53] LABS: MANUAL DIFF NEEDED? NO
[2017-01-14 07:05] LABS: BASO% 0.1 % (0.0-0.8); EOS# 0.25 X1000 (0.0-0.7); EOS% 3.4 % (0.0-10.0); HEMATOCRIT 24.8 % (42.0-52.0); HEMOGLOBIN 7.6 g/dL (14.0-18.0); LYMPH# 0.96 X1000 (1.2-3.4); LYMPH% 12.9 % (20.5-51.1); MCH 25.8 PG (27-31); MCHC 30.6 g/dL (33-37); MCV 84.1 FL (81-99); MONO# 0.67 X1000 (0.11-0.59); MPV 8.5 FL (7.4-10.4); NEUT% 74.6 % (42.2-75.2); PLT 314 X1000 (130-400); RBC 2.95 XMIL (4.7-6.1)
[2017-01-14 07:12] LABS: AGAP 8; BUN 20 mg/dL (8-22); CALCIUM 8.5 mg/dL (8.8-10.2); CHLORIDE 102 mmol/L (98-107); COSMO 279; SODIUM 137 mmol/L (136-145); TCO2 27 mmol/L (25-35)
[2017-01-14] MEDS: AMARYL PO SCH (10:08)
[2017-01-14] MEDS: ZYLOPRIM PO SCH (10:08)
[2017-01-14] MEDS: ZOLOFT PO SCH (10:09)
--- NOTE | 2017-01-14 10:18 | PROGRESS NOTE ---
DATE: 01/14/2017 SUBJECTIVE: Feels well. Occasional pain but controlled with p.o. medicines. No fevers. No tachycardia. Blood pressure is 124/65, oxygen saturation 99% on room air. He is alert and in no acute distress. Right foot dressing is clean, dry, and intact. No cellulitis extending up the foot. White count 7. Hematocrit stable at 24. Creatinine is 1.1. Glucose 140. ASSESSMENT AND PLAN: This is a 61-year-old male, status post right transmetatarsal amputation. He is doing well. Will plan to look at his wound tomorrow and make further disposition at that time. Otherwise glucose has seemed well controlled. He is on IV antibiotics. Would continue this for now but we will most likely be able to transition this to pills going home as I feel like we have removed any infected bone and soft tissue. cc: Bhavik Banerjee MD
[2017-01-14] MEDS: NS 1,000 ML IV SCH (12:35)
--- NOTE | 2017-01-14 13:34 | PROGRESS NOTE ---
DATE: 01/14/2017 SUBJECTIVE: This morning, Mr. Gamino refers to be doing fine, just a little pain in his right leg from the surgery. OBJECTIVE: Vital signs: Blood pressure is 101/64, pulse is 79, respirations 20, temperature 98.1. General: Mr. Gamino is a 61-year-old male. He is in bed, he is not in any distress. Mucosa is pink and moist. Anicteric and acyanotic. Neck is supple. Chest is clear. Cardiovascular: Regular rate and rhythm. There are no murmurs, no rubs and no gallops. Abdomen is soft. No hepatosplenomegaly. Extremities: No pedal edema. There is a bandage over the right distal fourth, consistent with a recent transmetatarsal amputation. DIAGNOSTIC DATA: WBC is 7.24, hemoglobin 7.6, platelet count 314. Chemistries were reviewed and unremarkable. ASSESSMENT: 1. Chronic osteomyelitis of the right foot, status post transmetatarsal amputation. Surgery and ID involved. 2. Acute kidney injury, resolved, with dehydration. 3. Diabetes mellitus, stable. 4. Situational depression. We will continue with Zoloft. 5. History of gout. We will continue with allopurinol. 6. Anemia, likely secondary to chronic illness. We will, however, do iron studies to make sure there is no underlying iron deficiency. cc: Kristian Gilmore MD
[2017-01-15] MEDS: ZOSYN 3.375 GM in NS 50 ML IV SCH ×4 (01:35→18:41)
[2017-01-15] MEDS: NS 1,000 ML IV SCH ×2 (01:36→16:11)
[2017-01-15] MEDS: HUMULIN R SUBQ SCH ×4 (06:11→21:29)
[2017-01-15] MEDS: NORCO-7.5 PO PRN ×3 (06:15→21:30)
[2017-01-15 07:18] LABS: MANUAL DIFF NEEDED? NO
[2017-01-15 07:24] LABS: BASO% 0.1 % (0.0-0.8); EOS# 0.22 X1000 (0.0-0.7); EOS% 2.8 % (0.0-10.0); HEMATOCRIT 25.4 % (42.0-52.0); HEMOGLOBIN 7.8 g/dL (14.0-18.0); LYMPH# 1.01 X1000 (1.2-3.4); MCH 25.8 PG (27-31); MCHC 30.7 g/dL (33-37); MCV 84.1 FL (81-99); MONO# 0.59 X1000 (0.11-0.59); MONO% 7.6 % (1.7-9.3); MPV 7.9 FL (7.4-10.4); NEUT% 76.5 % (42.2-75.2); PLT 333 X1000 (130-400); RBC 3.02 XMIL (4.7-6.1)
[2017-01-15 07:36] LABS: IRON SATURATION 13 %; TIBC 160 ug/dL; TOTAL IRON 21 ug/dL (53-167); UNBOUND IRON 139 ug/dL (112-346)
[2017-01-15 07:44] LABS: AGAP 10; BUN 16 mg/dL (8-22); CALCIUM 8.4 mg/dL (8.8-10.2); CHLORIDE 104 mmol/L (98-107); COSMO 281; POTASSIUM 4.7 mmol/L (3.5-5.1); SODIUM 140 mmol/L (136-145); TCO2 26 mmol/L (25-35)
[2017-01-15] MEDS: ZYLOPRIM PO SCH (07:59)
[2017-01-15] MEDS: ZOLOFT PO SCH (07:59)
[2017-01-15] MEDS: AMARYL PO SCH (07:59)
[2017-01-15 08:44] LABS: FERRITIN 642 ng/mL (30-400)
[2017-01-15] MEDS ORDERED: ZOSYN ONE (10:50)
--- NOTE | 2017-01-15 10:50 | PROGRESS NOTE ---
DATE: 01/15/2017 SUBJECTIVE: Feels okay. Occasional pains in his foot but he is overall doing well. No fevers. No tachycardia. OBJECTIVE: Blood pressure 118/60. His right transmetatarsal amputation site is clean. There is no drainage, no cellulitis. The skin flap is viable. White count is 7, hematocrit is 25. Creatinine is 1.1, glucose 117. ASSESSMENT/PLAN: A 61-year-old male with poorly controlled diabetes and recurrent diabetic foot infection, osteomyelitis, status post transmetatarsal amputation of the right foot. Wound looks good. We will order him a protective boot and increase his mobility today, and plan for maybe home tomorrow. cc: Bhavik Banerjee MD
--- NOTE | 2017-01-15 14:19 | PROGRESS NOTE ---
DATE: 01/15/2017 SUBJECTIVE: This patient states that he is feeling better. Surgery department evaluated this patient. A new dressing has been placed. He will use a special boot to protect his right foot. Physical therapy has been consulted and I do believe if everything is okay, by tomorrow we can discharge this patient home. OBJECTIVE: Vital Signs: Temperature 98.3 degrees, pulse 73, respiratory rate 20, blood pressure 118/60, oxygen saturation 100% on room air. HEENT: Head normocephalic. No trauma. PERRLA. Neck: Supple. No JVD. No masses. Central trachea. Chest: Clear to auscultation. No wheezing. No rales. Abdomen: Soft, nontender, nondistended. No hepatosplenomegaly. Extremities: No edema. There is a dressing over the right distal foot consistent with a recent transmetatarsal amputation. He also has a previous amputation of the 3rd and 4th toe on the left foot. Neurological: The patient is alert and oriented x3. He moves all 4 extremities. LABORATORY: WBC 7.7, hemoglobin 7.8, hematocrit 25.4, platelet 333,000. Sodium 140, potassium 4.7, chloride 104, bicarbonate 26, BUN 16, creatinine is 1.1, glucose 101, calcium 8.45. ASSESSMENT AND PLAN: 1. Chronic osteomyelitis of the right foot status post transmetatarsal amputation. Surgery department and infectious disease department involved. Physical therapy has been consulted today. Probably this patient can be discharged tomorrow. 2. Acute kidney injury, resolved. Continue with the same management. 3. Type 2 diabetes, stable. 4. Situational depression. Continue with Zoloft. 5. History of gout. Continue with allopurinol. 6. Anemia, likely secondary to chronic illness. 7. Overall, this patient is doing much better. Physical therapy has been consulted today. If this patient does okay, by tomorrow he will be discharged. We will follow the recommendation of surgery department and infectious disease department. cc: Sammy Zavala MD
[2017-01-16] MEDS: ZOSYN 3.375 GM in NS 50 ML IV SCH ×3 (01:04→11:31)
[2017-01-16] MEDS: NS 1,000 ML IV SCH (05:39)
[2017-01-16 06:46] LABS: HEMOGLOBIN 7.4 g/dL (14.0-18.0)
[2017-01-16] MEDS: HUMULIN R SUBQ SCH ×2 (06:56→11:24)
[2017-01-16 07:07] LABS: AGAP 7; BUN 14 mg/dL (8-22); CHLORIDE 105 mmol/L (98-107); COSMO 276; POTASSIUM 4.5 mmol/L (3.5-5.1); SODIUM 139 mmol/L (136-145); TCO2 27 mmol/L (25-35)
--- NOTE | 2017-01-16 08:50 | PROGRESS NOTE ---
DATE: 01/16/2017 HISTORY OF PRESENT ILLNESS: The patient is status post transmetatarsal amputation of the right foot. I discussed the surgery with Dr. Banerjee who performed the surgery and he felt that all the involved bone has been removed at the time of surgery. MEDICATIONS: The patient currently is on Zosyn. PHYSICAL EXAMINATION: Vital Signs: Temperature is 97.9 degrees, pulse 78, respirations 18, blood pressure 121/61. General: This is a fairly healthy-appearing, middle-aged male. He is in no acute distress. Cardiovascular: Heart rate is regular. Lungs: Clear to auscultation. Abdomen: Soft and nontender. Extremities: The dressing from the right foot was removed. The incision is intact. There is no erythema and no purulence. LAB AND X-RAY: The patient's CBC shows a white count of 7750, hemoglobin 7.4 and platelet count 333,000. Creatinine is 1.2. GFR is greater than 60. Blood cultures are sterile. Previously the patient has grown from his foot Enterococcus Proteus and E coli. ASSESSMENT AND PLAN: Dr. Banerjee and I as mentioned above discussed the patient's treatment. Since the involved bone has been removed, we both feel he does not need prolonged IV antibiotics. I have written the patient a prescription for amoxicillin 500 mg p.o. q.8 hours and Levaquin 500 mg p.o. daily both for 14 days. Previously the patient had grown enterococcus, Proteus and E. coli from his foot and the reason for the current antibiotics is to cover these organisms. There was no culture actually taken from the patient's foot during this admission. I also plan to see the patient back in my office in 2 weeks. COMORBIDITIES: Include diabetes mellitus and gout. cc: Miguel Artis MD
[2017-01-16] MEDS: ZOLOFT PO SCH (09:09)
[2017-01-16] MEDS: ZYLOPRIM PO SCH (09:09)
[2017-01-16] MEDS: AMARYL PO SCH (09:09)
[2017-01-16 11:36] VITALS: BP 150/77
--- NOTE | 2017-01-16 14:55 | PROGRESS NOTE ---
DATE: 01/16/2017 SUBJECTIVE: He feels well. He is getting around the room with his boot with touch down weightbearing. He is working with physical therapy. OBJECTIVE: Vital signs: No fevers. No tachycardia. Blood pressure has been okay. Extremities: His the right transmetatarsal site is healing well with no cellulitis. Flaps are viable. LABORATORY: Hematocrit is stable at 24. White count has been normal. Blood sugars have been well controlled. ASSESSMENT AND PLAN: This is a 61-year-old male status post right transmetatarsal amputation. I think from a surgical standpoint he is fine to go home. I do not think he will need any more IV antibiotics. We can transition to oral. I will defer to Dr. Artis. I have spoke with him about that this morning. He can see me back in the next 1-2 weeks for a wound check and suture removal. I have discussed the importance of keeping the foot elevated, limiting weightbearing, using only his protective boot when walking, and he will need a walker for assistance. cc: Bhavik Banerjee MD
--- NOTE | 2017-01-17 16:13 | DISCHARGE SUMMARY ---
ADMISSION DATE: 01/11/2017 DISCHARGE DATE: 01/16/2017 ADDENDUM REPORT HOSPITAL COURSE: Patient here for osteomyelitis, the main complaint of the right foot chronic, Dr. Banerjee, Surgery and Dr. Artis, Infectious Disease involved have evaluated the patient at discharge and feel okay with discharge on oral antibiotics today, and follow up with wound care. He is anemic. Hemoglobin and hematocrit has been stable, though for about 2 days likely related to chronic inflammation. Patient will be discharged. PHYSICAL EXAM: Cardiovascular: Regular rate and rhythm. Pulmonary: Bilateral breath sounds. Clear to auscultation. Extremities: His foot was in a bandage. PLAN: He will be set up with a walker and a boot to go home with. cc: MD Marylu Davies MD
--- NOTE | 2017-01-18 08:22 | DISCHARGE SUMMARY ---
ADMISSION DATE: 01/11/2017 DISCHARGE DATE: 01/16/2017 CONSULTATIONS: 1. Dr. Miguel Artis with Infectious Disease. 2. Dr. Jose Banerjee with General Surgery. PERTINENT PROCEDURES: 1. Right ankle was a negative exam. 2. Foot x-ray on the right showed probable chronic osteomyelitis in the distal 2nd through 4th metatarsal although this may represent negative x-ray exclusively to postsurgical change. Possibly septic arthritis and osteomyelitis around the 1st metatarsophalangeal joint cannot be excluded. 3. Right transmetatarsal amputation performed by Dr. Jose Banerjee secondary to diabetic foot infection with osteomyelitis. DISCHARGE DIAGNOSES: 1. Diabetic foot infection with osteomyelitis, status post right transmetatarsal amputation with Dr. Jose Banerjee. The patient will continue on p.o. antibiotics of amoxicillin and Levaquin for 14 days and will follow up with Dr. Artis in 2 weeks. He is to wear a protective boot and increase his mobility and follow up with Dr. Banerjee. 2. Acute kidney injury, resolved. 3. Diabetes mellitus, type 2, stable. 4. Situational depression. Continue Zoloft. 5. History of gout. Continue allopurinol. 6. Anemia secondary to chronic illness, stable. HOSPITAL COURSE: Mr. Gamino is a 61-year-old male with significant past medical history of diabetes with recent diabetic ulcers. He had several amputation of toes in April of this year on the left foot. He had 3rd and 4th toes amputated secondary to osteomyelitis in October of this year on the right side. He had a 4th toe amputation in November. He had his 3rd toe amputated 3 weeks ago. He had his 2nd toe amputated. He now presents with significant infection around the great toe. He could possibly have osteomyelitis. He was a direct admit from Dr. Banerjee's office for IV antibiotics. He reported 1 week ago his right foot started developing redness and he was started on oral antibiotics. It did improve the cellulitis but continued with infection now has green purulent drainage. He was directly admitted under Dr. Banerjee and started on IV Zosyn. Consulted Dr. Miguel Artis. He was placed on pattern sugars with sliding scale insulin and continued on home medications. His foot x-ray did show probable chronic osteomyelitis in the distal 2nd through 4th metatarsals on the right foot. Dr. Banerjee did a right transmetatarsal amputation. He did develop an acute kidney injury. He was continued on gentle hydration. His acute kidney injury due resolved. His wound looks good. He has been given a protective boot. Physical therapy worked with the patient to increase his mobility, and he will be discharged on p.o. Levaquin and p.o. amoxicillin. VITAL SIGNS AT TIME OF DISCHARGE: Temperature 98.3 degrees, heart rate 85, respirations 18, blood pressure 150/77. O2 is 98% on room air. DISCHARGE DIET: Diabetic. DISCHARGE MEDICATIONS: 1. Allopurinol 100 mg p.o. daily. 2. Amoxicillin 500 mg p.o. t.i.d. 3. Glimepiride 4 mg p.o. daily. 4. Levaquin 500 mg p.o. daily. 5. Lisinopril 5 mg p.o. daily. 6. Glucophage 500 mg p.o. daily. 7. Zoloft 50 mg p.o. daily. FOLLOWUP: Mr. Gamino is being discharged home. He will follow up with Dr. Artis in 2 weeks as well as Dr. Jose Banerjee as instructed and will continue wound care as instructed. He will continue to wear his protective boot and continue with wound care. He can return to the ED for any worsening of symptoms. Dictated by ZACHARIAH Solitario for Robert Ang MD cc: Robert Ang MD
== END 2017-01-16 17:12 | disposition home or self-care (01) ==
LOC: SUATTDRO 13:25 → DIRADM 13:25 → 3N 13:47
PROVIDERS: ATTEND Internal Medicine

== ENCOUNTER 2018-10-17 05:23 | Inpatient (IN) ==
[2018-10-17] MEDS ORDERED: LR 1,000 ML ONE (06:09)
[2018-10-17] MEDS ORDERED: PEPCID ONE (06:09)
[2018-10-17] MEDS ORDERED: KEFZOL 1 GM/D5W 2 GM/100 ML IVPB ONE (06:09)
[2018-10-17] MEDS ORDERED: REGLAN ONE (06:09)
[2018-10-17] MEDS ORDERED: DIPRIVAN 1% ONE (06:17)
[2018-10-17] MEDS ORDERED: XYLOCAINE-MPF 2% ONE (06:18)
[2018-10-17] MEDS ORDERED: QUELICIN (DOSE) ONE (06:39)
[2018-10-17] MEDS ORDERED: FENTANYL ONE (06:40)
[2018-10-17] MEDS ORDERED: HUMULIN R ONE (07:00)
[2018-10-17] MEDS ORDERED: DECADRON ONE (07:17)
[2018-10-17] MEDS ORDERED: ZOFRAN ONE (07:17)
[2018-10-17] MEDS ORDERED: MORPHINE ONE (08:09)
[2018-10-17] MEDS ORDERED: EPHEDRINE ONE (08:09)
[2018-10-17] MEDS: DILAUDID ONE ×5 (08:46→09:06)
[2018-10-17] MEDS ORDERED: NORCO-7.5 ONE (09:18)
[2018-10-17] MEDS ORDERED: ZOFRAN IV PRN (10:08)
[2018-10-17] MEDS ORDERED: GLUCOPHAGE PO SCH (10:08)
--- NOTE | 2018-10-17 10:11 | OPERATIVE NOTE ---
PROCEDURE DATE: 10/17/2018 PREOPERATIVE DIAGNOSIS: Nonhealing diabetic-associated right foot necrotic wound. POSTOPERATIVE DIAGNOSIS: Nonhealing diabetic-associated right foot necrotic wound. PROCEDURE PERFORMED: Right below-knee amputation. ESTIMATED BLOOD LOSS: 50 mL. SPECIMENS: Right leg. ANESTHESIA: General. INDICATIONS: This is a 63-year-old gentleman who has a history of a right transmetatarsal amputation. He has a recurrent diabetic foot wound, necrotic, extending up the calcaneus with severe associated pain. OPERATIVE FINDINGS: There was well perfused muscle. There were calcific blood vessels noted at the level of the proximal calf. OPERATIVE NOTE: Risks, benefits and alternatives were discussed with the patient and he consented to the procedure. He was seen preoperatively. Surgical site was confirmed. His surgical site was also marked preoperatively. He was taken to the operating room, placed in supine position and general anesthesia was induced. His right lower extremity was prepped with Betadine and draped in the usual fashion excluding the foot. After a time-out, we made an incision orienting a posterior flap and made this incision with a knife and electrocautery was carried down through the fascia and the muscle, identifying the tibia. We encircled this and using a periosteal elevator, we dissected this back. The anterior tibial artery was divided with silk ligatures. At this point, a Gigli saw was used to amputate the tibia. We allowed approximately a hand breadth from the tibial tuberosity and we beveled the top to ensure that there were no sharp edges. We then continued our dissection, identifying the fibula and encircled this and amputated it at about the same level. The greater saphenous vein was also identified and ligated. At this point, using the amputation knife, we completed our posterior amputation and passing the specimen off, the vascular and nerve pedicle were divided highly and proximally, ligating with a Vicryl suture hopefully to limit neuroma and postop neuralgia. Hemostasis was noted. The posterior flap was quite bulky. We excised the soleus muscle. There was well perfused gastroc, good fascia here. After irrigating the wound of all bone fragments, we then reapproximated the fascia with interrupted 0 Vicryl suture and the skin was closed. We did debulk the skin flap medially. We did this with surgical clips. Xeroform, ABD, Kerlix and an Jerson dressing was applied. He tolerated it well. A knee immobilizer was placed. Counts were correct. I spoke with the family. He was transferred to recovery. cc: Bhavik Banerjee MD
[2018-10-17] MEDS ORDERED: HUMULIN R SUBQ SCH (11:00)
[2018-10-17 12:07] LABS: ALLEN TEST YES; BE 1.7 mmoll (-3.0-3.0); BLOOD TYPE ARTERIAL; HCO3-(ACT) 26.2 mmoll (20.0-26.0); METHB 1.6 % (0.0-1.5); O2(CT) 14.4 mL/dL (15.0-23.0); PCO2(98.6) 46 mmHg (35-45); PO2(98.6) 129 mmHg (60-100); SAMPLE BLOOD; SAO2 99.2 % (95.0-100.0); THB 10.5 g/dL (11.5-17.4); pH(98.6) 7.38 (7.35-7.45)
[2018-10-17 12:08] LABS: MODALITY CANNULA
[2018-10-17] MEDS: AMARYL PO SCH (12:16)
[2018-10-17] MEDS: APRESOLINE PO SCH ×2 (12:16→21:56)
[2018-10-17] MEDS: ZOLOFT PO SCH (12:17)
[2018-10-17] MEDS: ZYLOPRIM PO SCH (12:17)
[2018-10-17] MEDS: LR 1,000 ML IV SCH ×2 (12:18→16:07)
--- NOTE | 2018-10-17 12:20 | EKG Report ---
Test Performed on : 10/17/2018 12:13:07 PM Test Reason : rythm eval Blood Pressure : / mmHG Vent. Rate : 087 BPM Atrial Rate : 087 BPM P-R Int : 150 ms QRS Dur : 086 ms QT Int : 362 ms P-R-T Axes : 042 024 045 degrees QTc Int : 435 ms Normal sinus rhythm. Normal ECG When compared with ECG of 06-DEC-2016 09:19, No significant change was found Confirmed by Shayan Whaley MD ([id number]) on 10/17/2018 6:14:23 PM
[2018-10-17] MEDS: MORPHINE IV PRN (13:10)
[2018-10-17] MEDS ORDERED: TYLENOL PO PRN (13:40)
--- NOTE | 2018-10-17 14:18 | CONSULTATION ---
DATE OF CONSULTATION: 10/17/2018 PRIMARY CARE PROVIDER: Dr. Aviles. PRIMARY SURGEON: Dr. Jose Banerjee. CONSULTING SURGEON: Dr. Jose Banerjee. REASON FOR CONSULTATION: Glucose control and medical management. HOSPITAL COURSE: Mr. Melvin Gamino is a 63-year-old male with a medical history of diabetes mellitus type 2 with frequent diabetic foot ulcers. He has even had a history of 2 amputated toes on the left along with half of the right foot amputated all secondary to diabetic foot ulcers. Apparently, he had developed a new foot ulcer back in May. The decision was made to have a right bravw-xme-snuu amputation. Now, he is day of surgery status post right below- the-knee amputation performed by Dr. Jose Banerjee. Hemodynamically stable postoperatively. He states that his pain is controlled but, we have been consulted to help with medical management of his diabetes and glucose which is significantly elevated post surgery at greater than 400. He is on the medical floor, and will continue to monitor him. Thank you for this consultation. PAST MEDICAL HISTORY: 1. Diabetes mellitus type 2, with his last hemoglobin A1c being 7.5% on 03/27/2018. 2. Frequent diabetic foot ulcers. 3. Coronary artery disease with myocardial infarction history and 3 cardiac stents in 2010. 4. Hypertension. 5. Gout. 6. Diabetic neuropathy. 7. Depression. PAST SURGICAL HISTORY: 1. On 10/17/2018 date of surgery. Right oudzs-oyw-dwha amputation performed by Dr. Jose Banerjee. 2. Third and fourth toe amputation on the left foot. 3. 4th toe on the right foot amputated. 4. Right foot half of the foot amputated. 5. In 2010, three cardiac stents. FAMILY HISTORY: Father had diabetes. Grandmother had diabetes. SOCIAL HISTORY: Denies tobacco, alcohol or illicit drug use. Lives at home with his daughter. ALLERGIES: No known drug allergies. HOME MEDICATIONS: 1. Allopurinol 100 mg p.o. daily. 2. Apresoline 50 mg p.o. twice daily. 3. Glimepiride 4 mg p.o. daily. 4. Metformin 500 mg p.o. daily. 5. Lisinopril 25 mg p.o. daily. 6. Microzide 12.5 mg p.o. daily. 7. Zoloft 100 mg p.o. daily. 8. Perry 7.5 1 tab p.o. every 4 hours p.r.n. REVIEW OF SYSTEMS: Fourteen point review of systems are complete and all were negative for those mentioned above HPI. He denies any symptoms. He states he feels much better post surgery, and his pain is well controlled. He is complaining of feeling a little bit clammy and run down and that is it. PHYSICAL EXAMINATION: Vital Signs: Temperature 99 degrees. Heart rate 103, respiratory 20, blood pressure 155/82, O2 saturations 96% on 2 L nasal cannula. General: Mr. Melvin Gamino is a 63- year-old male. He is in no acute distress. Able to answer questions appropriately. HEENT: Atraumatic and normocephalic. Pupils equal, round, reactive to light. Extraocular movements intact. Mucous membranes are dry. Neck: Trachea midline. Cardiovascular: S1, S2. Tachycardic rate and rhythm. No rubs, gallops, or murmurs. No lower extremity edema on the left leg. Right leg is wrapped with +1 dorsalis pedal pulse on the left. +2 radial pulses. Negative for JVD or carotid bruits. Pulmonary: Clear to auscultation. Bilateral breath sounds. No accessory muscle use or work of breathing noted. GI: Soft, nontender, and nondistended. Positive bowel sounds x4. Extremities: Moves all extremities equally except for the right lower extremity that recently had surgery today. Decreased range of motion. Neurologic: Alert and oriented x3. Follows commands. Sensory is intact. Skin: Clammy, warm, and pale. No drainage noted on the right stump. LABORATORY DATA: A pH 7.38, pCO2 46, PO2 129, bicarb 26.2, base excess 1.7 and saturation 96%. Lactate 1. Glucoses have ranged at 6:15 this morning, it was 455. At 6:51 this morning, it was 440. At 8:41 this morning, it was 460. At 1:18 this afternoon, it is 323, other labs are pending. IMAGING: There are no images, but there is an EKG. He is a normal sinus rhythm with a rate of 87. The QTc is 435. There are no ST changes. ASSESSMENT AND PLAN: 1. Reason for consultation is for glucose management with diabetes mellitus type 2 likely uncontrolled. He is on oral diabetic medications which include metformin and glimepiride. He is going to be on sliding scale insulin moderate dosing. We will do pattern blood glucoses. ABGs reveal that he is not in acidosis. It is likely elevated due to just inflammatory postoperative reaction. Should slowly decrease, he is getting IV fluids. He is on diabetic diet. Clear liquids for now. Advance as tolerated. 2. Right fcvta-lfb-ytba amputation day of surgery by Dr. Banerjee secondary to frequent diabetic foot ulcers that are nonhealing. Dressing is dry and intact. The pain is well controlled per the patient. 3. History of coronary artery disease with myocardial infarction and stents. He is not on aspirin. I do not see a statin either. No complaints of chest pains at this time. His EKG is normal. 4. History of gout. He is on allopurinol that has been continued. 5. Hypertension. He is on Apresoline that is resumed. Lisinopril was held. 6. Hyperlipidemia. Reviewing medications that he was on at home, it looks like he takes atorvastatin 40 mg nightly. We will continue that. 7. Deep venous thrombosis prophylaxis. There was compression Jerson wrap around the right stump lower extremity and SCD's on left. 8. Depression. We will continue his Zoloft. Dictated by ZACHARIAH Perez for Robert Ang MD cc: ZACHARIAH Perez MD
[2018-10-17 15:25] LABS: ALB/GLOB RATIO 0.6; CALCIUM 9.3 mg/dL (8.8-10.2); CREATININE 1.9 mg/dL (0.7-1.2); MAGNESIUM 1.8 mg/dL (1.5-2.7); POTASSIUM 4.1 mmol/L (3.5-5.1); TOTAL BILIRUBIN 0.31 mg/dL (0.20-1.00); TOTAL PROTEIN 7.7 g/dL (6.3-8.3)
[2018-10-17] MEDS ORDERED: AMARYL PO ONE (15:43)
[2018-10-17 15:48] LABS: HEMOGLOBIN A1C 11.3 % (4.8-6.0)
[2018-10-17] MEDS: NORCO-7.5 PO PRN (16:07)
[2018-10-17] MEDS: GLUCOPHAGE PO SCH (16:07)
[2018-10-17] MEDS: HUMULIN R SUBQ SCH (16:08)
--- NOTE | 2018-10-17 18:39 | CONSULTATION ---
DATE OF CONSULTATION: 10/17/2018 ADDENDUM: Patient was evaluated today. He came in for a BKA electively per Dr. Banerjee. He had some intraoperative and postoperative sugars that were elevated and he was admitted for treatment. States he is -Bhut[place], but I do not think he is -Bhutanese that I am aware. He has foot ulcers. He came in for evaluation, and again, his sugars have been in the 400s postoperatively, and we are working on trying to get them down. He has some baseline renal insufficiency. PHYSICAL EXAMINATION: His wound looks good. Otherwise, unremarkable. ASSESSMENT/PLAN: 1. For diabetes, we will continue aggressive control and adjust medications accordingly. 2. Right srvvi-rjf-ovcs amputation. We are going to continue to monitor and work on pain control, things of that nature. He sees Dr. Aviles. [id number] encounter note with Fely Camilo. cc: MD Bhavik Melgar MD Alexis R. Penot, MD
[2018-10-17] MEDS: LIPITOR PO SCH (21:56)
[2018-10-18] MEDS: HUMULIN R SUBQ SCH ×5 (04:38→23:20)
--- NOTE | 2018-10-18 06:35 | GENERAL SURGERY PROGRESS NOTE ---
DATE: 10/18/2018 SUBJECTIVE: Patient seems to be doing okay. OBJECTIVE: Vital Signs: Patient is currently afebrile. His vital signs stable. General: No acute distress. Extremities: Right ezcnm-jec-anvx amputation site with dressing intact. No saturation of the dressing. ASSESSMENT AND PLAN: A 63-year-old gentleman status post operative day #1 from right below-the- knee amputation. Right postop state. At this time, continue to monitor him. We will take down the dressing postop day #3. cc: MD Robert Ferrell MD
[2018-10-18] MEDS: NORCO-7.5 PO PRN ×2 (07:14→13:54)
[2018-10-18 07:21] LABS: BASO# 0.01 X1000 (0.0-0.2); BASO% 0.1 % (0.0-0.8); EOS# 0.12 X1000 (0.0-0.7); EOS% 1.2 % (0.0-10.0); HEMATOCRIT 29.7 % (42.0-52.0); HEMOGLOBIN 9.3 g/dL (14.0-18.0); LYMPH# 0.97 X1000 (1.2-3.4); LYMPH% 9.6 % (20.5-51.1); MCH 25.4 PG (27-31); MCHC 31.3 g/dL (33-37); MCV 81.1 FL (81-99); MONO# 0.84 X1000 (0.11-0.59); MONO% 8.3 % (1.7-9.3); MPV 8.7 FL (7.4-10.4); NEUT# 8.15 X1000 (1.4-6.5); NEUT% 80.8 % (42.2-75.2); PLT 310 X1000 (130-400); RBC 3.66 XMIL (4.7-6.1); RDW 13.9 % (11.5-14.5); WBC 10.09 X1000 (4.8-10.8)
[2018-10-18 07:46] LABS: ALB/GLOB RATIO 0.8; ALBUMIN 3.2 g/dL (3.5-5.0); CREATININE 1.8 mg/dL (0.7-1.2); MAGNESIUM 1.6 mg/dL (1.5-2.7); POTASSIUM 4.4 mmol/L (3.5-5.1); TOTAL BILIRUBIN 0.41 mg/dL (0.20-1.00); TOTAL PROTEIN 7.3 g/dL (6.3-8.3)
[2018-10-18] MEDS: APRESOLINE PO SCH ×2 (08:24→23:19)
[2018-10-18] MEDS: ZOLOFT PO SCH (08:24)
[2018-10-18] MEDS: ZYLOPRIM PO SCH (08:24)
[2018-10-18] MEDS: AMARYL PO SCH (08:24)
[2018-10-18] MEDS: GLUCOPHAGE PO SCH ×2 (08:25→16:16)
[2018-10-18] MEDS: MORPHINE IV PRN (10:15)
[2018-10-18] MEDS: LR 1,000 ML IV SCH (16:16)
[2018-10-18] MEDS: LIPITOR PO SCH (23:18)
--- NOTE | 2018-10-19 00:51 | PROGRESS NOTE ---
DATE: 10/18/2018 SUBJECTIVE: The patient has no major complaints. Seems to be doing okay. OBJECTIVE: Vital signs: Blood pressure 137/67, heart rate 88, respiratory rate 18, temperature 98.6 degrees. Cardiovascular: Regular rate and rhythm. Pulmonary: Bilateral breath sounds clear to auscultation. Gastrointestinal: Soft, nontender, nondistended. Bowel sounds are positive. LABORATORY DATA: White count 10, hemoglobin and hematocrit 9 and 29, platelets of 219,000. Electrolytes okay. Creatinine 1.8. Sugars down to 160, 202. PROBLEM LIST: 1. Uncontrolled elevation of sugar. We will continue to monitor. Adjust medications accordingly, but overall improved. I think I am going to titrate up on his glimepiride. 2. Right below-knee amputation. We will continue surgical management and follow. 3. Coronary artery disease. He is stable on current medications. 4. Gout. Continue allopurinol and follow clinically. 5. Hypertension, stable. Continue regular medications, follow. 6. Disposition per surgery. We will continue to monitor. cc: Robert Ang MD
--- NOTE | 2018-10-19 06:27 | GENERAL SURGERY PROGRESS NOTE ---
DATE: 10/19/2018 Patient seems to be doing okay. No major issues. He has a little nausea. Stump protector is in place. Dressing is intact from his metnf-ubh-ocxc amputation site. No active drainage. We will review the wound tomorrow on postoperative day #3. cc: MD Robert Ferrell MD
[2018-10-19] MEDS: HUMULIN R SUBQ SCH ×4 (06:36→21:13)
[2018-10-19] MEDS: APRESOLINE PO SCH ×2 (08:54→21:11)
[2018-10-19] MEDS: JANUVIA PO SCH (08:54)
[2018-10-19] MEDS: ZOLOFT PO SCH (08:55)
[2018-10-19] MEDS: AMARYL PO SCH (08:55)
[2018-10-19] MEDS: ZYLOPRIM PO SCH (08:55)
--- NOTE | 2018-10-19 13:36 | Diag Imaging Result Doc PS360 ---
EXAM: CHEST-PORTABLE 10/19/2018 HISTORY: REHAB REQUIRES TECHNIQUE: AP portable at 1324 COMMENT: There is no evidence of acute cardiac disease. The inspiration is less optimal than on the previous study of 09/05/2016. There is questionable platelike atelectasis in both lung bases. IMPRESSION: Questionable bibasilar atelectasis. Poor inspiration. Electronically signed by Vinicio Teran 10/19/2018 1:33 PM
[2018-10-19] MEDS: NORCO-7.5 PO PRN ×2 (16:10→23:22)
--- NOTE | 2018-10-19 17:58 | PROGRESS NOTE ---
DATE: 10/19/2018 SUBJECTIVE: Patient looks well. No major complaints. OBJECTIVE: Vital Signs: Blood pressure 138/72, heart rate 92, respiratory rate 20, temperature 98.5 degrees, 98% on room air. Cardiovascular: Regular rate and rhythm. Pulmonary: Bilateral breath sounds. Clear to auscultation. GI: Soft, nontender, nondistended. Bowel sounds are positive. LABORATORY DATA: No new data today. Sugars have been 143, 160, 164, and 196. PROBLEM LIST: 1. Type 2 diabetes, improved control, but not complete control. I may bump up his glimepiride a little further and see how he does. 2. Right below-knee amputation secondary to peripheral vascular disease. Surgery is managing. 3. Coronary artery disease, stable on current medications. DISPOSITION: Anticipate he is going to go to rehab soon. We will continue to monitor. cc: Robert Ang MD
[2018-10-19] MEDS: LR 1,000 ML IV SCH ×3 (21:10→21:12)
[2018-10-19] MEDS: LIPITOR PO SCH (21:11)
[2018-10-20] MEDS: HUMULIN R SUBQ SCH ×3 (06:50→20:30)
[2018-10-20] MEDS: LR 1,000 ML IV SCH ×3 (06:51→20:09)
[2018-10-20 06:54] LABS: BASO# 0.01 X1000 (0.0-0.2); BASO% 0.1 % (0.0-0.8); EOS# 0.14 X1000 (0.0-0.7); EOS% 1.6 % (0.0-10.0); HEMATOCRIT 27.9 % (42.0-52.0); HEMOGLOBIN 8.5 g/dL (14.0-18.0); IMM GRAN# 0.02 X1000 (0.0-0.04); IMM GRAN% 0.2 % (0.0-0.5); LYMPH# 0.89 X1000 (1.2-3.4); LYMPH% 10.4 % (20.5-51.1); MCHC 30.5 g/dL (33-37); MCV 82.1 FL (81-99); MONO# 0.74 X1000 (0.11-0.59); MONO% 8.7 % (1.7-9.3); MPV 8.6 FL (7.4-10.4); NEUT# 6.73 X1000 (1.4-6.5); PLT 320 X1000 (130-400); WBC 8.53 X1000 (4.8-10.8)
[2018-10-20 07:17] LABS: CALCIUM 8.8 mg/dL (8.8-10.2); CREATININE 1.3 mg/dL (0.7-1.2); POTASSIUM 4.1 mmol/L (3.5-5.1)
[2018-10-20] MEDS: APRESOLINE PO SCH ×2 (08:36→20:09)
[2018-10-20] MEDS: AMARYL PO SCH (08:36)
[2018-10-20] MEDS: ZYLOPRIM PO SCH (08:36)
[2018-10-20] MEDS: JANUVIA PO SCH (08:36)
[2018-10-20] MEDS: ZOLOFT PO SCH (08:36)
--- NOTE | 2018-10-20 09:51 | GENERAL SURGERY PROGRESS NOTE ---
DATE: 10/20/2018 TIME OF EXAM: 9:15 in the morning. SUBJECTIVE: Mr. Gamino is doing well. His splint is in place. OBJECTIVE: He is afebrile. White count is normal. PLAN: Get PT to assist him with transfer training. I think he is set to go to rehab sometime the 1st of the week. He really has no complaints. cc: MD Robert Langford MD
--- NOTE | 2018-10-20 17:58 | PROGRESS NOTE ---
DATE: 10/20/2018 SUBJECTIVE: The patient is doing well. No major complaints. OBJECTIVE: Blood pressure is 157/71, heart rate 87, respiratory rate 18, temperature 97.9 degrees.Cardiovascular: Regular rate and rhythm. Pulmonary: Bilateral breath sounds, clear to auscultation. GI: Soft, nontender, nondistended. Bowel sounds are positive. LABORATORY DATA: White count 8, hemoglobin 8.5, hematocrit 27, platelets 320,000. Creatinine 1.3. Sugars down to the 80s. ASSESSMENT AND PLAN: 1. Type 2 diabetes. He is on glimepiride, which we have increased to 6, and he is on Januvia at 50 and seems to be doing okay. 2. Pslxg-qm-sawzklg renal failure. That is also improving with hydration. 3. Right below-knee amputation. He seems to be doing okay. 4. Disposition: Anticipate discharge to rehab on Monday presumably, if there are no major pitfalls in the meantime. cc: Robert Ang MD
[2018-10-20] MEDS: LIPITOR PO SCH (20:09)
[2018-10-20] MEDS: NORCO-7.5 PO PRN (20:10)
--- NOTE | 2018-10-21 07:40 | GENERAL SURGERY PROGRESS NOTE ---
DATE: 10/21/2018 Mr. Gamino is now 4 days after his below-knee amputation. His bandage is removed and his wound is inspected. His stump looks good. There is no evidence of infection. He can straighten his leg out easily without the splint. We will leave the bandage off. I anticipate him going to rehab, possibly tomorrow. cc: MD Robert Langford MD
[2018-10-21] MEDS: APRESOLINE PO SCH ×2 (09:33→20:49)
[2018-10-21] MEDS: ZYLOPRIM PO SCH (09:33)
[2018-10-21] MEDS: AMARYL PO SCH (09:33)
[2018-10-21] MEDS: JANUVIA PO SCH (09:33)
[2018-10-21] MEDS: ZOLOFT PO SCH (09:33)
[2018-10-21] MEDS: LR 1,000 ML IV SCH (09:39)
[2018-10-21] MEDS: HUMULIN R SUBQ SCH ×4 (12:07→20:48)
--- NOTE | 2018-10-21 17:13 | PROGRESS NOTE ---
DATE: 10/21/2018 SUBJECTIVE: The patient has no major complaints. Doing fairly well. OBJECTIVE: Blood pressure is been 140/78, heart rate 85, respiratory 16, temperature 98 degrees 99% on room air.Cardiovascular: Regular rate and rhythm. Pulmonary: Bilateral breath sounds clear to auscultation. GI: Soft, nontender, nondistended. Bowel sounds are positive. LABORATORY DATA: 1. Looks good. Sugars if anything are under pretty good control, overall less than 180 but he has had 1 of 49 and 1 of 66. I am going to decrease his glimepiride to 4 mg a day which I think is his outpatient dose. He is also on Januvia 50. He has some mild renal insufficiency so that may be sufficient for him. 2. Acute on chronic renal failure. That is also improved. 3. Right below-knee amputation. He is progressing with physical therapy. DISPOSITION: Anticipate discharge tomorrow if stable, will check on him prior to discharge just pending his clinical status. cc: Robert Ang MD
[2018-10-21] MEDS: LIPITOR PO SCH (20:49)
[2018-10-21] MEDS: NORCO-7.5 PO PRN (20:49)
[2018-10-22] MEDS: PERIDEX MT SCH ×2 (09:38→21:06)
[2018-10-22] MEDS: APRESOLINE PO SCH ×2 (09:38→21:06)
[2018-10-22] MEDS: ZOLOFT PO SCH (09:38)
[2018-10-22] MEDS: AMARYL PO SCH (09:38)
[2018-10-22] MEDS: ZYLOPRIM PO SCH (09:38)
[2018-10-22] MEDS: JANUVIA PO SCH (09:38)
[2018-10-22] MEDS: HUMULIN R SUBQ SCH ×4 (12:30→21:06)
--- NOTE | 2018-10-22 12:54 | PROGRESS NOTE ---
DATE: 10/22/2018 SUBJECTIVE: Patient has no complaints. OBJECTIVE: Vital Signs: Blood pressure is 154/74, heart rate 92, respiratory rate 20, temperature 98.2, 96% percent on room air. Cardiovascular: Regular rate and rhythm. Pulmonary: Bilateral breath sounds clear to auscultation. Abdomen: Soft, nontender, nondistended. Bowel sounds are positive. Extremities: No clubbing or cyanosis. Lymphatic: No peripheral edema. Neurological: Nonfocal. LABORATORY DATA: Everything looks pretty stable. His sugars have now come up but now they are going up again into the 200s, so I think I am going to just add something adjunct. If he is on Amaryl and he is already on Januvia. I will think what else we can add. PROBLEM LIST: 1. He has got some mild renal insufficiency. I really do not want to add any. I guess we could give him some Actos and see how he does with that, just at low dose. 2. Severe peripheral vascular disease status post below knee amputation. He is doing well. Continue to progress with therapy. DISPOSITION: Anticipate discharge to rehab once we have had approval. cc: Robert Ang MD
[2018-10-22] MEDS: ACTOS PO SCH (17:46)
--- NOTE | 2018-10-22 19:31 | GENERAL SURGERY PROGRESS NOTE ---
DATE: 10/22/2018 SUBJECTIVE: He is doing well. Minimal pain. His right wound is healing very well. No necrosis of the flap. No fevers. No tachycardia. I reviewed his labs. Blood sugars have been better, mostly in the 100s. ASSESSMENT/PLAN: A 66-year-old gentleman who is status post right below-knee amputation. He is doing well. I think plans for rehab soon. His IV is coming out and we will keep it out as he has not really required much in the way of pain medication. We will continue to follow along. cc: MD Robert Betancourt MD
[2018-10-22] MEDS: NORCO-7.5 PO PRN (19:41)
[2018-10-22] MEDS: LIPITOR PO SCH (21:06)
[2018-10-23] MEDS ORDERED: LOVENOX SUBQ SCH (07:15)
[2018-10-23] MEDS: HUMULIN R SUBQ SCH ×3 (07:35→16:59)
[2018-10-23] MEDS: PERIDEX MT SCH (09:30)
[2018-10-23] MEDS: ACTOS PO SCH (09:31)
[2018-10-23] MEDS: APRESOLINE PO SCH (09:31)
[2018-10-23] MEDS: ZYLOPRIM PO SCH (09:31)
[2018-10-23] MEDS: JANUVIA PO SCH (09:31)
[2018-10-23] MEDS: ZOLOFT PO SCH (09:32)
[2018-10-23] MEDS: AMARYL PO SCH (09:32)
[2018-10-23] MEDS ORDERED: LACTULOSE PO SCH (10:00)
[2018-10-23] MEDS ORDERED: MIRALAX PO SCH (10:00)
[2018-10-23 12:25] LABS: CALCIUM 8.9 mg/dL (8.8-10.2); CREATININE 1.4 mg/dL (0.7-1.2); POTASSIUM 4.6 mmol/L (3.5-5.1)
[2018-10-23] MEDS: NORCO-7.5 PO PRN (13:22)
[2018-10-23 15:11] VITALS: BP 150/78
--- NOTE | 2018-10-23 15:40 | DISCHARGE SUMMARY ---
ADMISSION DATE: 10/17/2018 DISCHARGE DATE: 10/23/2018 PRIMARY CARE PHYSICIAN: Dr. Aviles. FINAL DISCHARGE DIAGNOSES: 1. Status post right vdhqd-[id number] amputation secondary to a nonhealing diabetic right foot necrotic wound. 2. Uncontrolled diabetes mellitus type 2. 3. Chronic kidney disease. 4. Hypertension. 5. Gout. IMAGING: Portable chest x-ray performed on October 19, 2018 that revealed bibasilar atelectasis. PROCEDURES PERFORMED DURING THIS HOSPITALIZATION: Right yqkho-wvj-hzvm amputation performed on October 17, 2018. HOSPITAL COURSE: Mr. Gamino is a 63-year-old male with a history of poorly controlled diabetes, hypertension, and gout who presented to the ER with a nonhealing diabetic wound on his right foot. On admission, the patient was noted to have a white blood cell count of 10,000 and was noted to be in acute on chronic renal failure. Also, the patient was noted to have a hemoglobin A1c of 11.3. The patient was admitted and General Surgery was notified. The patient was taken to the OR on October 17, 2018, at which time a right vhvit-[id number]-wcgq amputation was performed. The patient was treated with IV fluids for his renal insufficiency and his renal function improved back to baseline. Adjustments were made to the patient's blood sugar medications and there was improvement in the patient's blood glucose numbers. The patient continued to improve clinically and was ultimately cleared for discharge to [facility] on October 23, 2018. DISCHARGE MEDICATIONS: 1. Lipitor 40 mg p.o. at bedtime. 2. Januvia 50 mg p.o. daily. 3. [place] 7.5/325 one tablet oral every 6 hours p.r.n. for pain. 4. Zoloft 100 mg p.o. daily. 5. Amaryl 4 mg p.o. daily. 6. Allopurinol 100 mg p.o. daily. 7. Hydralazine 50 mg twice a day. 8. Hydrochlorothiazide 12.5 mg oral daily. DISCHARGE DIET: An 1800 ADA diet. ACTIVITY: As tolerated. FOLLOW-UP INSTRUCTIONS: The patient will need to follow up with Dr. Banerjee within 1 to 2 weeks. The patient will need to follow up with Dr. Aviles upon discharge from inpatient rehabilitation. cc: MD PARRISH Dillon
== END 2018-10-23 18:17 | DRG 240 ==
LOC: SURHOLD 05:23 → 4N 09:44
PROVIDERS: ADMIT Internal Medicine; ATTEND Surgery
CPT/HCPCS: 71010; 71045; 80048; 80053; 82805; 82948; 83036; 83735; 85025; 88307; 93005; 93010; 94761; 94799; 97110; 97116; 97162; 97530; A9270; J0330; J0690; J1100; J1170; J1650; J2270; J2405; J3010; J7120; XXXXX